=== PATIENT | male | born 1950 | race Two or more races ===

== ENCOUNTER 2022-01-12 21:51 | Inpatient (IN) | payer OTHER ==
[~2022-01-12] VITALS: Ht 175.3 cm; Wt 51.3 kg
[2022-01-12 22:00] VITALS: BP_SYST 164
[2022-01-12] MEDS ORDERED: IPRATROPIUM/ALBUTEROL SULFATE 3 ML AMPUL.NEB (DUONEB) ONE (22:13)
[2022-01-12] MEDS ORDERED: IPRATROPIUM/ALBUTEROL SULFATE 3 ML AMPUL.NEB (DUONEB) INH ONE ×2 (22:15→22:30)
[2022-01-12] MEDS ORDERED: methylPREDNISolone SOD SUCC/PF 62.5 MG/ML VIAL IVP ONE (22:30)
[2022-01-12] MEDS ORDERED: ASPIRIN 81 MG TAB.CHEW PO ONE (22:30)
[2022-01-12] MEDS ORDERED: MAGNESIUM SULFATE 50 ML IV ONE (22:30)
[2022-01-12 22:34] LABS: BASOPHILS % (AUTO) 0.6 % (0.0-2.0); EOSINOPHILS % (AUTO) 0.1 % (0.0-4.0); HEMOGLOBIN 15.2 g/dL (14.0-18.0); LYMPHOCYTES # (AUTO) 0.4 K/uL (1.0-5.5); LYMPHOCYTES % (AUTO) 6.3 % (20.5-51.5); MEAN CORPUSCULAR HEMOGLOBIN 32 pg (27-31); MEAN CORPUSCULAR HGB CONC 34 % (32-36); MEAN CORPUSCULAR VOLUME 94 fL (79.0-98.0); MONOCYTES # (AUTO) 0.8 K/uL (0.0-1.0); MONOCYTES % (AUTO) 13.2 % (1.7-9.3); NEUTROPHILS % (AUTO) 79.8 % (40.0-70.0); PLATELET COUNT (AUTO) 287 K/uL (130-430); RED BLOOD CELL COUNT(AUTO) 4.81 MIL/uL (4.2-6.2); WHITE BLOOD COUNT (AUTO) 6.2 K/uL (4.8-10.8)
[2022-01-12 22:42] LABS: ANION GAP 9 (5-15); CALCIUM 9.8 mg/dL (8.4-11.0); CHLORIDE 105 mmol/L (98-107); GLUCOSE 130 mg/dL (70-99); UREA NITROGEN, BLOOD 25 mg/dL (8-21)
[2022-01-12 22:43] LABS: GFR AFRICAN AMERICAN 52 mL/min (>90)
--- NOTE | 2022-01-12 22:44 | NUR ---
HERE FOR SOB X4 DAYS ACCESSORY MUSCLE USE. HX OF COPD, CHF AND HYPERTENTION. DENIES CHEST PAIN. A/O X4, AMBULATORY
[2022-01-12 22:51] LABS: ALANINE AMINOTRANSFERASE 36 U/L (12-78); ALBUMIN 3.9 g/dL (3.4-4.8); ASPARTATE AMINOTRANSFERASE 25 U/L (10-37); TOTAL BILIRUBIN 0.3 mg/dL (0.0-1.0)
--- NOTE | 2022-01-13 00:15 | NUR ---
Cassy moses in ED - 01/13/22 at 0030 by [email or web address] ULTRASOUND AT BEDSIDE
--- NOTE | 2022-01-13 00:20 | NUR ---
RT AT BEDSIDE
--- NOTE | 2022-01-13 00:43 | NUR ---
Admit bed requested Patient will be admitted to care of . Admitted to TELEMETRY unit. Diagnosis COPD EXACERBATION Inpatient (Yes or No) Y Observation (Yes or N Orientation concerns or request close to nursing station (Yes or No) N Covid Status - On vent or bipap N Isolation requirements N Needs a sitter N From Home (Yes or if No enter name of facility) Y Requires Dialysis (Yes or No) N Med Rec Completed (Yes of No) PENDING
[2022-01-13] MEDS ORDERED: cefTRIAXone 1 GM IVPB PREMIX 50 ML IV ONE (00:45)
[2022-01-13] MEDS ORDERED: AZITHROMYCIN 250 MG TABLET PO ONE (00:45)
[2022-01-13] MEDS ORDERED: IPRATROPIUM/ALBUTEROL SULFATE 3 ML AMPUL.NEB (DUONEB) INH PRN (00:45)
[2022-01-13] MEDS ORDERED: IPRATROPIUM/ALBUTEROL SULFATE 3 ML AMPUL.NEB (DUONEB) ONE (00:50)
--- NOTE | 2022-01-13 01:44 | NUR ---
Transfer to TELE via ACLS protocol. Licensed nurse present. IV present no signs or symptoms of infiltration.
--- NOTE | 2022-01-13 01:45 | NUR ---
Patient will be admitted to care of DR. WILKES. Admitted to TELE unit. Will go to room 107B. Belongings list completed. Complete and up to date summary report printed. SBAR report to be given at bedside with opportunity for questions.
[2022-01-13 02:47] VITALS: BP_SYST 138
[2022-01-13 04:02] VITALS: BP_SYST 138
[2022-01-13] MEDS ORDERED: ROSU10TA29 PO (05:55)
[2022-01-13] MEDS ORDERED: SACU1TAB PO (05:55)
[2022-01-13] MEDS ORDERED: METO50TA7 PO (05:55)
[2022-01-13] MEDS ORDERED: SPIRIVA INH (05:55)
[2022-01-13] MEDS ORDERED: ASPI-1457 PO (05:55)
--- NOTE | 2022-01-13 07:08 | NUR ---
PATIENT NEW ADMIT DURING THIS SHIFT. PATIENT A&OX4, AMB, CONT B&B, ST ON TELEMETRY, NO NOTED WOUNDS, CARDIAC DIET, PIV TO LEFT AC, SL.
--- NOTE | 2022-01-13 07:30 | NUR ---
OPENING NOTE PT IN BED, RESPIRATIONS EVEN AND NON-LABORED 2L O2 VIA NC. DENIES CHEST PAIN, SOB, OR DISCOMFORT. PT IS ABLE TO MAKE HIS NEEDS KNOWN. IV SL REMAIN PATENT AND INTACT. NO S/S OF INFILTRATION OR INFECTION NOTED. BED IS LOCKED AND AT LOW POSITION. ENCOURAGED TO USE CALL LIGHT FOR ASSISTANCE. WILL CONTINUE TO MONITOR.
[2022-01-13] MEDS ORDERED: BUDE6HFA INH (07:33)
[2022-01-13] MEDS ORDERED: ALEN10TA25 PO (07:33)
[2022-01-13] MEDS ORDERED: PRED10TA PO (07:33)
[2022-01-13] MEDS ORDERED: CHOL200019 PO (07:33)
[2022-01-13] MEDS ORDERED: CHLO25TA2 PO (07:33)
[2022-01-13 08:00] VITALS: BP_SYST 156
[2022-01-13] MEDS ORDERED: TIOT4MIS5 IH (08:29)
[2022-01-13] MEDS ORDERED: CETI10CA PO (08:50)
[2022-01-13] MEDS ORDERED: MAGNESIUM SULFATE 50 ML IV PRN (09:45)
[2022-01-13] MEDS ORDERED: NALOXONE HCL 0.4 MG/ML AMP (NARCAN) IVP PRN ×2 (09:45)
[2022-01-13] MEDS ORDERED: DOCUSATE SODIUM 100 MG CAPSULE PO PRN (09:45)
[2022-01-13] MEDS ORDERED: MUPIROCIN 2% TOPICAL OINTMENT 22 GM NS PRN (09:45)
[2022-01-13] MEDS ORDERED: POTASSIUM CHLORIDE 20 MEQ TAB.PRT.SR PO PRN (09:45)
[2022-01-13] MEDS ORDERED: ONDANSETRON HCL 4 MG/2 ML VIAL IVP PRN (09:45)
[2022-01-13] MEDS ORDERED: ACETAMINOPHEN 325 MG TABLET PO PRN ×2 (09:45→10:00)
[2022-01-13] MEDS ORDERED: LORazepam 2 MG/ML VIAL IVP PRN (09:45)
[2022-01-13] MEDS ORDERED: MORPHINE 2 MG/ML INJ. SYRINGE IVP PRN ×2 (09:45)
[2022-01-13] MEDS ORDERED: METOPROLOL SUCCINATE 50 MG TAB.SR.24H (TOPROL XL) PO ONE (10:00)
[2022-01-13] MEDS ORDERED: SACUBITRIL/VALSARTAN 24 MG-26 MG 1 TABLET PO ONE (10:00)
[2022-01-13] MEDS: CHLORTHALIDONE 25 MG TABLET (HYGROTON) PO ONE ×2 (10:57→11:10)
--- NOTE | 2022-01-13 11:30 | NUR ---
NOTES PT REQUESTS TO INCREASE O2 FROM 2L TO 3L VIA NC. PT TOLERATED WELL WITH SPO2:96%.
[2022-01-13 12:00] VITALS: BP_SYST 134
[2022-01-13] MEDS: ALBUTEROL SULFATE 0.083% 2.5 MG/3 ML VIAL.NEB INH SCH ×2 (12:59→19:00)
[2022-01-13] MEDS: methylPREDNISolone SOD SUCC/PF 62.5 MG/ML VIAL IVP SCH ×2 (14:47→21:28)
--- NOTE | 2022-01-13 15:00 | NUR ---
NOTES PT DENIES ANY PAIN OR DISCOMFORT. DENIES ANY PAIN, DISCOMFORT, SOB NOTED. SAFETY PRECAUTION IN PLACED. WILL CONTINUE TO MONITOR
[2022-01-13 16:00] VITALS: BP_SYST 134
[2022-01-13] MEDS: BUDESONIDE 0.5 MG/2 ML AMPUL.NEB INH SCH (19:00)
--- NOTE | 2022-01-13 19:00 | NUR ---
CLOSING NOTE PT IN BED, RESPIRATIONS EVEN AND NON-LABORED 3L O2 VIA NC. DENIES CHEST PAIN, SOB, OR DISCOMFORT. IV SL REMAIN PATENT AND INTACT. NO S/S OF INFILTRATION OR INFECTION NOTED. BED IS LOCKED AND AT LOW POSITION. ENCOURAGED TO USE CALL LIGHT FOR ASSISTANCE. ENDORSED CARE TO CHUCKING MACHINE SET UP OPERATOR TOOL NURSE.
[2022-01-13 20:00] VITALS: BP_SYST 148
[2022-01-13] MEDS ORDERED: BUDESONIDE/FORMOTEROL 160-4.5 mCg, 6 GM INHALER INH SCH (21:00)
[2022-01-13] MEDS: SACUBITRIL/VALSARTAN 24 MG-26 MG 1 TABLET PO SCH (21:20)
[2022-01-14] VITALS: BP_SYST 138
[2022-01-14] MEDS: ALBUTEROL SULFATE 0.083% 2.5 MG/3 ML VIAL.NEB INH SCH ×4 (01:00→19:38)
[2022-01-14] MEDS: methylPREDNISolone SOD SUCC/PF 62.5 MG/ML VIAL IVP SCH ×3 (06:35→21:01)
[2022-01-14 06:47] LABS: BASOPHILS # (AUTO) 0.1 K/uL (0.0-0.2); BASOPHILS % (AUTO) 0.8 % (0.0-2.0); HEMATOCRIT 46.1 % (36-54); HEMOGLOBIN 15.4 g/dL (14.0-18.0); LYMPHOCYTES # (AUTO) 0.3 K/uL (1.0-5.5); LYMPHOCYTES % (AUTO) 4.4 % (20.5-51.5); MEAN CORPUSCULAR HEMOGLOBIN 31 pg (27-31); MEAN CORPUSCULAR HGB CONC 33 % (32-36); MEAN CORPUSCULAR VOLUME 94 fL (79.0-98.0); MONOCYTES # (AUTO) 0.3 K/uL (0.0-1.0); MONOCYTES % (AUTO) 5.1 % (1.7-9.3); NEUTROPHILS % (AUTO) 89.7 % (40.0-70.0); PLATELET COUNT (AUTO) 274 K/uL (130-430); RED BLOOD CELL COUNT(AUTO) 4.92 MIL/uL (4.2-6.2); RED CELL DISTRIBUTION WIDTH 14.9 % (9.0-15.0); WHITE BLOOD COUNT (AUTO) 6.7 K/uL (4.8-10.8)
[2022-01-14] MEDS: BUDESONIDE 0.5 MG/2 ML AMPUL.NEB INH SCH ×2 (07:12→19:37)
[2022-01-14 07:36] LABS: CALCIUM 8.7 mg/dL (8.4-11.0); CREATININE 1.43 mg/dL (0.55-1.30)
[2022-01-14 08:08] VITALS: BP_SYST 137
--- NOTE | 2022-01-14 08:11 | NUR ---
Initial notes Received patient awake and oriented x 4, speech clear. Comfortable sitting at edge of bed tripod position for lung expansion. Respiration even and unlabored oxygen saturation at 98% on 4L NC. Non signs of distress or SOB. Abdomen nondistended, skin warm to touch. IV saline lock intact no sings of redness or infiltration. Continue to monitor, all safety measures secured, bed in low position and call light w/in reached
[2022-01-14] MEDS: METOPROLOL SUCCINATE 50 MG TAB.SR.24H (TOPROL XL) PO SCH (08:54)
[2022-01-14] MEDS: CHLORTHALIDONE 25 MG TABLET (HYGROTON) PO SCH ×2 (08:56→09:00)
[2022-01-14] MEDS: SACUBITRIL/VALSARTAN 24 MG-26 MG 1 TABLET PO SCH ×2 (08:57→21:01)
[2022-01-14 11:31] VITALS: BP_SYST 124
--- NOTE | 2022-01-14 12:00 | NUR ---
Rounding Patient stable ,sitting at edge of bed, no signs of distress,answer to questions and concerns.
--- NOTE | 2022-01-14 14:20 | NUR ---
Rounding Patient sitting in chair, no signs of distress, family at bedside
[2022-01-14 15:31] VITALS: BP_SYST 130
[2022-01-14] MEDS ORDERED: AZITHROMYCIN 250 MG TABLET PO ONE (16:30)
[2022-01-14] MEDS ORDERED: FUROSEMIDE 20 MG/2 ML VIAL IVP ONE (16:30)
[2022-01-14] MEDS: MONTELUKAST 10 MG TABLET PO SCH (17:10)
--- NOTE | 2022-01-14 18:06 | NUR ---
Closing notes Patient sitting (tripod position) at edge of bed, uses accessory muscle, respiration even and unlabored, oxygen saturation at 98% on 4L nasal canula. No signs of respiratory distress or no c/o chest discomfort. Vital signs w/in normal limits, IV saline lock to left AC patent. All safety measures are secure, bed in low position, call light w/in reached, will endorse to oncoming nurse for continuation of care.
[2022-01-14 20:30] VITALS: BP_SYST 137
[2022-01-14] MEDS ORDERED: SALMETEROL XINAFOATE 50 MCG 1 EA DISK.W.DEV INH SCH (21:00)
[2022-01-14] MEDS: LORATADINE 10 MG TABLET PO SCH (21:01)
--- NOTE | 2022-01-14 22:00 | NUR ---
New IV start 22 Gauge left FA tolerated .
--- NOTE | 2022-01-14 23:28 | NUR ---
patient sitting up in bed Tripod position COPD , on 02 NC 2 LPM Respirations Regular also unlabored call mejía given to patient .
[2022-01-15 00:07] VITALS: BP_SYST 144
[2022-01-15] MEDS: ALBUTEROL SULFATE 0.083% 2.5 MG/3 ML VIAL.NEB INH SCH ×4 (01:00→19:00)
--- NOTE | 2022-01-15 01:12 | NUR ---
HOURLY Rounding patient Resting is verbally Responsive FALL RISK measures implemented chest movement symmetrical unlabored / .
--- NOTE | 2022-01-15 04:42 | NUR ---
Hourly Rounding patient Resting Tripod position on 02 NC 2 LPM Respirations Regular also unlabored is verbally Responsive call mejía with patient / .
[2022-01-15] MEDS: methylPREDNISolone SOD SUCC/PF 62.5 MG/ML VIAL IVP SCH ×3 (05:55→22:01)
--- NOTE | 2022-01-15 06:00 | NUR ---
New IV start 22 Gauge Right FA d/t previous IV got pulled out .
[2022-01-15] MEDS: BUDESONIDE 0.5 MG/2 ML AMPUL.NEB INH SCH (07:31)
[2022-01-15 07:44] LABS: CALCIUM 8.8 mg/dL (8.4-11.0); CREATININE 1.49 mg/dL (0.55-1.30)
[2022-01-15 07:58] LABS: BASOPHILS % (AUTO) 0.1 % (0.0-2.0); HEMATOCRIT 48.3 % (36-54); HEMOGLOBIN 16.2 g/dL (14.0-18.0); LYMPHOCYTES # (AUTO) 0.3 K/uL (1.0-5.5); LYMPHOCYTES % (AUTO) 4.3 % (20.5-51.5); MEAN CORPUSCULAR HEMOGLOBIN 31 pg (27-31); MEAN CORPUSCULAR HGB CONC 34 % (32-36); MEAN CORPUSCULAR VOLUME 94 fL (79.0-98.0); MONOCYTES # (AUTO) 0.4 K/uL (0.0-1.0); MONOCYTES % (AUTO) 5.6 % (1.7-9.3); NEUTROPHILS # (AUTO) 6.9 K/uL (1.8-7.7); PLATELET COUNT (AUTO) 278 K/uL (130-430); RED BLOOD CELL COUNT(AUTO) 5.16 MIL/uL (4.2-6.2); RED CELL DISTRIBUTION WIDTH 14.8 % (9.0-15.0); WHITE BLOOD COUNT (AUTO) 7.7 K/uL (4.8-10.8)
[2022-01-15 08:00] VITALS: BP_SYST 150
--- NOTE | 2022-01-15 08:00 | NUR ---
Initial notes Received patient awake and oriented x 4, comfortable sitting up at edge of bed in tripod position for lung expansion. Respiration even and unlabored oxygen saturation at 98% on 4L nasal canula, vital signs w/in normal limits. No signs of distress or SOB. Abdomen soft, skin warm to touch. IV saline lock intact no signs of redness or infiltration. Continue to monitor, all safety measures secured, bed in low position and call light w/in reached
[2022-01-15] MEDS: METOPROLOL SUCCINATE 50 MG TAB.SR.24H (TOPROL XL) PO SCH (08:18)
[2022-01-15] MEDS: AZITHROMYCIN 250 MG TABLET PO SCH (08:19)
[2022-01-15] MEDS: CHLORTHALIDONE 25 MG TABLET (HYGROTON) PO SCH (08:20)
--- NOTE | 2022-01-15 09:58 | NUR ---
CONSULTATION PAGED/CALLED Reason for Consultation: [facility] Person Who was Notified: Dr Allen Consulting Physician: Pallavi Allen Ordering Physician: Kavin Mcghee
[2022-01-15] MEDS: SACUBITRIL/VALSARTAN 24 MG-26 MG 1 TABLET PO SCH ×2 (11:20→22:02)
[2022-01-15 11:28] VITALS: BP_SYST 139
--- NOTE | 2022-01-15 12:09 | NUR ---
CONSULTATION PAGED/CALLED Reason for Consultation: copd/hx of chf Person Who was Notified: evangelina Consulting Physician: kayli contreras Ordering Physician: crista edmond
[2022-01-15 15:36] VITALS: BP_SYST 132
--- NOTE | 2022-01-15 16:18 | NUR ---
Rounding Patient awake sitting up in bed, no c/o distress or chest pain.
[2022-01-15] MEDS: MONTELUKAST 10 MG TABLET PO SCH (18:20)
--- NOTE | 2022-01-15 18:44 | NUR ---
Closing note Patient awake sitting at edge of bed, respiration even and unlabored, oxygen saturation at 98% on 4L nasal canula. No signs of respiratory distress or no c/o pain. IV saline lock to left AC patent. All safety measures are secure, bed in low position, call light w/in reached, will endorse to oncoming nurse for continuation of care.
[2022-01-15 21:00] VITALS: BP_SYST 135
[2022-01-15] MEDS: LORATADINE 10 MG TABLET PO SCH (22:02)
--- NOTE | 2022-01-15 22:15 | NUR ---
Tripod position dangling feet BED ALARM is on patient alert , on 02 NC @ 2 LPM 02 SAT 93 % skin dry warm chest movement symmetrical unlabored .
[2022-01-16 01:00] VITALS: BP_SYST 144
[2022-01-16] MEDS: ALBUTEROL SULFATE 0.083% 2.5 MG/3 ML VIAL.NEB INH SCH ×2 (01:00→07:00)
--- NOTE | 2022-01-16 03:43 | NUR ---
Hourly Rounding patient Resting is verbally Responsive skin dry warm call mejía given to patient bed alarm is ON / .
[2022-01-16] MEDS: methylPREDNISolone SOD SUCC/PF 62.5 MG/ML VIAL IVP SCH ×2 (05:57→12:20)
[2022-01-16 07:08] LABS: BASOPHILS % (AUTO) 0.1 % (0.0-2.0); HEMATOCRIT 49.6 % (36-54); HEMOGLOBIN 16.7 g/dL (14.0-18.0); LYMPHOCYTES # (AUTO) 0.3 K/uL (1.0-5.5); MEAN CORPUSCULAR HEMOGLOBIN 31 pg (27-31); MEAN CORPUSCULAR HGB CONC 34 % (32-36); MEAN CORPUSCULAR VOLUME 93 fL (79.0-98.0); MONOCYTES # (AUTO) 0.4 K/uL (0.0-1.0); MONOCYTES % (AUTO) 4.5 % (1.7-9.3); NEUTROPHILS # (AUTO) 7.6 K/uL (1.8-7.7); NEUTROPHILS % (AUTO) 91.4 % (40.0-70.0); PLATELET COUNT (AUTO) 273 K/uL (130-430); RED BLOOD CELL COUNT(AUTO) 5.32 MIL/uL (4.2-6.2); RED CELL DISTRIBUTION WIDTH 14.8 % (9.0-15.0); WHITE BLOOD COUNT (AUTO) 8.4 K/uL (4.8-10.8)
[2022-01-16 07:29] LABS: CALCIUM 8.6 mg/dL (8.4-11.0); CREATININE 1.59 mg/dL (0.55-1.30)
[2022-01-16 08:00] VITALS: BP_SYST 134
--- NOTE | 2022-01-16 08:00 | NUR ---
Initial Notes Patient is AOx4. No s.s of distress noted. Breathing is even and nonlabored, on room air. Spo2 is at 92-93%. Patient has nasal cannula at 3 L O2 if needed. Patient states does not need it at this time. Uses it when ambulating. Patient denies pain and SOB. Vital signs obtained, as documented. Patient sitting on chair by bedside. Gait steady. Breakfast on bedside table. Bed locked and at lowest position. Educated patient on safety and fall precautions, patient verbalized understanding. Call light within reach.
[2022-01-16] MEDS ORDERED: PRED10TA PO (08:54)
[2022-01-16] MEDS ORDERED: AZIT-93 PO (08:54)
[2022-01-16] MEDS ORDERED: ASPIRIN 81 MG TABLET(ECOTRIN) PO SCH (09:00)
[2022-01-16] MEDS ORDERED: ATORVASTATIN 20 MG TABLET PO SCH (09:00)
[2022-01-16] MEDS ORDERED: ROSUVASTATIN CALCIUM 5 MG PO SCH (09:00)
[2022-01-16] MEDS: SACUBITRIL/VALSARTAN 24 MG-26 MG 1 TABLET PO SCH (09:51)
[2022-01-16] MEDS: AZITHROMYCIN 250 MG TABLET PO SCH (09:52)
[2022-01-16] MEDS: METOPROLOL SUCCINATE 50 MG TAB.SR.24H (TOPROL XL) PO SCH (09:52)
[2022-01-16] MEDS: CHLORTHALIDONE 25 MG TABLET (HYGROTON) PO SCH (09:53)
[2022-01-16 10:06] VITALS: BP_SYST 134
[2022-01-16 10:56] VITALS: BP_SYST 127; BP_SYST 134
[2022-01-16 12:00] VITALS: BP_SYST 127
--- NOTE | 2022-01-16 12:45 | NUR ---
discharge Patient is sitting in chair. No s.s of distress noted. breathing is even and nonlabored, on 3 L O2 via NC. Patient ambulated with PT earlier. Gait steady. Patient denies SOB. Denies pain. patient waiting for his ride. Safety precautions in place and call light within reach. Addendum: 01/16/22 at 1247 by Sasha Omalley LVN Notes
--- NOTE | 2022-01-16 13:30 | NUR ---
D/C Patient Patient given medication reconciliation form and D/C instructions. Exit Care provided. Patient verbalized understanding. MD discussed with patient the results and treatment provided. Ambulatory with steady gait for discharge to home. Patient in stable condition, ID band removed. IV catheter removed, intact and dressing applied, no active bleeding. Rx of given. Patient educated on pain management. All belongings sent with patient.
== END 2022-01-16 13:05 | disposition home or self-care (01) | DRG 291 ==
LOC: SED 21:51 → STU 01-13 00:38
PROVIDERS: ADMIT Family Medicine; ATTEND Family Medicine
DX: I13.0 Hypertensive heart and chronic kidney disease with heart failure and stage 1 through stage 4 chronic kidney disease, or unspecified chronic kidney disease (principal); I50.23 Acute on chronic systolic (congestive) heart failure; J96.21 Acute and chronic respiratory failure with hypoxia; N17.0 Acute kidney failure with tubular necrosis; J44.1 Chronic obstructive pulmonary disease with (acute) exacerbation; R64 Cachexia; Z68.1 Body mass index [BMI] 19.9 or less, adult; I42.9 Cardiomyopathy, unspecified; E78.5 Hyperlipidemia, unspecified; N18.9 Chronic kidney disease, unspecified; Z20.822 Contact with and (suspected) exposure to COVID-19; Z87.891 Personal history of nicotine dependence; Z86.718 Personal history of other venous thrombosis and embolism; Z79.01 Long term (current) use of anticoagulants; Z86.711 Personal history of pulmonary embolism
CPT/HCPCS: 36415; 71045; 71250-TC; 76376; 80048; 80053; 83735; 83880; 84484; 85025; 85379; 93005; 93306; 94640; 94760; 96365; 96375; 99285; G0378; J0696; J1940; J2930; J3475; J7613; J7626; Q0144

== ENCOUNTER 2022-04-22 08:03 | Emergency (ER) | payer OTHER ==
[~2022-04-22] VITALS: Ht 177.8 cm; Wt 49.9 kg
[~2022-04-22 08:03] MED LIST: ALEN10TA25 PO; ASPI-1457 PO; AZIT-93 PO; BUDE6HFA INH; CETI10CA PO; CHLO25TA2 PO; CHOL200019 PO; METO50TA7 PO; PRED10TA PO; ROSU10TA29 PO; SACU1TAB PO; TIOT4MIS5 IH
[2022-04-22 08:05] VITALS: BP_SYST 168
--- NOTE | 2022-04-22 08:10 | NUR ---
BROUGHT BACK TO BED #7 AND TRIAGED. REPORT GIVEN TO EUGENIO
--- NOTE | 2022-04-22 08:30 | NUR ---
Pt brought in by self from home. Chief Complaint left nostril nose bleed. No discharge at this time. Pt states this morning was awoken with the left nares bleeding. Pt states was able to control bleed and presents to the hospital with out signs of distress. Oxygen in home use 2 liters via nasal canula; pt with personal oxygen tank. Denies nausea. Pt states history of COPD, HTN and cardiac history related to alcohol consumption.
--- NOTE | 2022-04-22 08:32 | NUR ---
ER at bedside examining patient.
[2022-04-22] MEDS ORDERED: SODI126M NS (08:43)
[2022-04-22 09:15] VITALS: BP_SYST 168
--- NOTE | 2022-04-22 09:20 | NUR ---
Patient given written and verbal discharge instructions and verbalizes understanding. ER MD discussed with patient the results and treatment provided. Patient in stable condition. ID arm band removed. Rx of Normal saline mist given. Patient educated on pain management and to follow up with PMD. Opportunity for questions provided and answered. Medication side effect fact sheet provided.
== END 2022-04-22 09:20 | disposition home or self-care (01) ==
LOC: SED 08:03
DX: R04.0 Epistaxis (principal); J44.9 Chronic obstructive pulmonary disease, unspecified; I10 Essential (primary) hypertension; Z79.899 Other long term (current) drug therapy
CPT/HCPCS: 99281

== ENCOUNTER 2022-04-27 02:53 | Emergency (ER) | payer OTHER ==
[~2022-04-27] VITALS: Ht 170.2 cm; Wt 49.9 kg
[2022-04-27 02:53] VITALS: BP_SYST 142
[~2022-04-27 02:53] MED LIST changes: +SODI126M NS
--- NOTE | 2022-04-27 02:53 | NUR ---
Pt BIB BLS, placed to ER bed 05, to gown, to laboratory monitor. Pt c/o nose bleed since last night and was seen here in ER 5 days ago for same issue. Arrives with nose clamp in place, but bright red blood noted to be dripping from right nare. Pt states that he last took his daily baby aspirin 5 days ago when the bleeding started. No other anticoagulants reported.
[2022-04-27] MEDS ORDERED: OXYMETAZOLINE HCL 0.05% NASAL SPRAY NS ONE (03:00)
[2022-04-27] MEDS ORDERED: TRANEXAMIC ACID 1,000 MG/10 ML VIAL TP ONE (03:00)
--- NOTE | 2022-04-27 03:05 | NUR ---
Dr. Sosa at bedside to assess pt.
[2022-04-27] MEDS ORDERED: NACL 0.9% 1,000 ML IV ONE (03:15)
--- NOTE | 2022-04-27 03:15 | NUR ---
# 18 gauge angiocath placed to RAC. Use of asceptic technique. Opsite placed over site. Blood return noted. Blood for lab drawn from site. Flushed with 10 cc of normal saline. No evidence of infiltration noted. Patient tolerated well.
--- NOTE | 2022-04-27 03:40 | NUR ---
7.5 cm Rhino Rocket soaked in TXA and Afrin placed to right nare per Dr. Sosa. Bleeding controlled.
[2022-04-27 03:47] LABS: BASOPHILS # (AUTO) 0.1 K/uL (0.0-0.2); BASOPHILS % (AUTO) 1.4 % (0.0-2.0); EOSINOPHILS # (AUTO) 0.3 K/uL (0.0-0.4); EOSINOPHILS % (AUTO) 6.2 % (0.0-4.0); HEMATOCRIT 47.1 % (36-54); HEMOGLOBIN 15.5 g/dL (14.0-18.0); LYMPHOCYTES # (AUTO) 1.3 K/uL (1.0-5.5); LYMPHOCYTES % (AUTO) 24.4 % (20.5-51.5); MEAN CORPUSCULAR HEMOGLOBIN 31 pg (27-31); MEAN CORPUSCULAR HGB CONC 33 % (32-36); MEAN CORPUSCULAR VOLUME 95 fL (79.0-98.0); MONOCYTES # (AUTO) 0.7 K/uL (0.0-1.0); NEUTROPHILS # (AUTO) 2.8 K/uL (1.8-7.7); PLATELET COUNT (AUTO) 239 K/uL (130-430); RED BLOOD CELL COUNT(AUTO) 4.97 MIL/uL (4.2-6.2); RED CELL DISTRIBUTION WIDTH 14.7 % (9.0-15.0); WHITE BLOOD COUNT (AUTO) 5.2 K/uL (4.8-10.8)
[2022-04-27 04:08] LABS: ANION GAP 9 (5-15); CALCIUM 9.7 mg/dL (8.4-11.0); CHLORIDE 103 mmol/L (98-107); CREATININE 1.14 mg/dL (0.55-1.30); GLUCOSE 118 mg/dL (70-99); UREA NITROGEN, BLOOD 14 mg/dL (8-21)
[2022-04-27 04:12] LABS: ALANINE AMINOTRANSFERASE 37 U/L (12-78); ALBUMIN 4.3 g/dL (3.4-4.8); ASPARTATE AMINOTRANSFERASE 26 U/L (10-37); TOTAL BILIRUBIN 0.8 mg/dL (0.0-1.0)
[2022-04-27 04:17] LABS: PROTHROMBIN TIME 10.9 SECS (9.5-12.5)
--- NOTE | 2022-04-27 04:30 | NUR ---
Pt states that he feels blood to back of throat. Bright red drops of blood noted dripping from left nare. Dr. Sosa at bedside to reposition rhino rocket and bleeding subsides.
--- NOTE | 2022-04-27 05:00 | NUR ---
No further epistaxis noted. HR 98, B/P 158/96. Pt denies c/o C/P or SOB. Dr. Sosa updated on pt status and no new orders received. Daughter at bedside.
--- NOTE | 2022-04-27 06:00 | NUR ---
B/P 143/95, asymptomatic. Dr. Pack made aware.
--- NOTE | 2022-04-27 06:10 | NUR ---
No further epistaxis noted. Denies c/o pain or discomfort. Warm blankets provided.
--- NOTE | 2022-04-27 06:19 | NUR ---
Medication reconciliation completed with information provided by patient. Any prior medication reconciliation on file was reviewed and corrected.
[2022-04-27] MEDS ORDERED: SACUBITRIL/VALSARTAN 24 MG-26 MG 1 TABLET PO ONE (06:30)
[2022-04-27] MEDS ORDERED: METOPROLOL SUCCINATE 50 MG TAB.SR.24H (TOPROL XL) PO ONE (06:30)
--- NOTE | 2022-04-27 06:39 | NUR ---
Pt declined by [facility] doctor as per Anali.Dr Pack notified.
--- NOTE | 2022-04-27 06:50 | NUR ---
Pt c/o pain to Right nare. Dr. Pack notified and pt to be medicated prior to discharge.
[2022-04-27] MEDS ORDERED: traMADol HCL HCL 50 MG TABLET (ULTRAM) PO ONE (07:00)
[2022-04-27 07:10] VITALS: BP_SYST 143
--- NOTE | 2022-04-27 07:10 | NUR ---
Patient given written and verbal discharge instructions and verbalizes understanding. ER MD discussed with patient the results and treatment provided. Patient in stable condition. ID arm band removed. IV catheter removed intact and dressing applied, no active bleeding. No Rx given given. Patient educated on pain management and to follow up with PMD. Pain Scale 5/10, medicated prior to discharge. Opportunity for questions provided and answered. Medication side effect fact sheet provided.
== END 2022-04-27 07:10 | disposition home or self-care (01) ==
LOC: SED 02:53
DX: R04.0 Epistaxis (principal); J44.9 Chronic obstructive pulmonary disease, unspecified; I10 Essential (primary) hypertension; Z79.899 Other long term (current) drug therapy
CPT/HCPCS: 99291; 30905; 80053; 85025; 85610; 85730; 86886; 86900; 86901; 36415; J3490

== ENCOUNTER 2022-08-27 14:45 | Inpatient (IN) | payer OTHER ==
[~2022-08-27] VITALS: Ht 175.3 cm; Wt 49.9 kg
[~2022-08-27 14:45] MED LIST changes: -ALEN10TA25 PO; -AZIT-93 PO; -PRED10TA PO
[2022-08-27 14:50] VITALS: BP_SYST 114
--- NOTE | 2022-08-27 15:00 | NUR ---
Placed in room 04 . Placed on residential monitor, blood pressure machine and pulse oximeter. To gown for exam. Side rails up. Report given to TRANG STARKEY.
[2022-08-27] MEDS ORDERED: IPRATROPIUM/ALBUTEROL SULFATE 3 ML AMPUL.NEB (DUONEB) INH ONE (15:15)
[2022-08-27] MEDS ORDERED: MAGNESIUM SULFATE 50 ML IV ONE (15:15)
[2022-08-27] MEDS ORDERED: methylPREDNISolone SOD SUCC/PF 62.5 MG/ML VIAL IVP ONE (15:15)
--- NOTE | 2022-08-27 15:15 | NUR ---
Radiology at bedside now
[2022-08-27 15:30] LABS: BASOPHILS % (AUTO) 0.2 % (0.0-2.0); HEMOGLOBIN 14.3 g/dL (14.0-18.0); LYMPHOCYTES # (AUTO) 0.1 K/uL (1.0-5.5); LYMPHOCYTES % (AUTO) 0.8 % (20.5-51.5); MEAN CORPUSCULAR HEMOGLOBIN 31 pg (27-31); MEAN CORPUSCULAR HGB CONC 33 % (32-36); MEAN CORPUSCULAR VOLUME 97 fL (79.0-98.0); MONOCYTES # (AUTO) 1.1 K/uL (0.0-1.0); MONOCYTES % (AUTO) 8.3 % (1.7-9.3); NEUTROPHILS # (AUTO) 12.5 K/uL (1.8-7.7); NEUTROPHILS % (AUTO) 90.7 % (40.0-70.0); PLATELET COUNT (AUTO) 251 K/uL (130-430); RED BLOOD CELL COUNT(AUTO) 4.56 MIL/uL (4.2-6.2); WHITE BLOOD COUNT (AUTO) 13.8 K/uL (4.8-10.8)
--- NOTE | 2022-08-27 15:30 | NUR ---
Respiratory at bedside now.
--- NOTE | 2022-08-27 15:39 | NUR ---
Patient given ECG and is resting on gurney.
[2022-08-27 15:55] LABS: ANION GAP 7 (5-15); CALCIUM 9.1 mg/dL (8.4-11.0); CHLORIDE 97 mmol/L (98-107); GLUCOSE 198 mg/dL (70-99); UREA NITROGEN, BLOOD 20 mg/dL (8-21)
[2022-08-27 16:00] LABS: ALANINE AMINOTRANSFERASE 21 U/L (12-78); ALBUMIN 2.6 g/dL (3.4-4.8); ASPARTATE AMINOTRANSFERASE 16 U/L (10-37); TOTAL BILIRUBIN 0.6 mg/dL (0.0-1.0)
[2022-08-27] MEDS ORDERED: cefTRIAXone 1 GM IVPB PREMIX 50 ML IV ONE (16:30)
[2022-08-27] MEDS ORDERED: AZITHROMYCIN 500 MG in NS 250 ML IV ONE (16:30)
[2022-08-27] MEDS ORDERED: NACL 0.9% 1,500 ML IV ONE (16:30)
--- NOTE | 2022-08-27 16:57 | NUR ---
Patient has spoken to MD and has been advised that he will stay in the hospital. Patient indicates he understands and family was present and able to ask questions to the Doctor.
--- NOTE | 2022-08-27 18:14 | NUR ---
Note [email or web address] in ED - 08/27/22 at 1818 by [email or web address] Admit bed requested Patient will be admitted to care of [Michel]. Admitted to [Medsurg] unit. Diagnosis [COPD, PNEUMONIA] Inpatient (Yes or No) [YES] Observation (Yes or No) [N/A] Orientation concerns or request close to nursing station (Yes or No) [N/A] Covid Status [PENDING] On vent or bipap [] Isolation requirements [] Needs a sitter [N/A] From Home (Yes or if No enter name of facility) [YES] Requires Dialysis (Yes or No) [N/A] Med Rec Completed (Yes of No) []
--- NOTE | 2022-08-27 18:14 | NUR ---
Admit bed requested Patient will be admitted to care of [Michel]. Admitted to [Tele ] unit. Diagnosis [COPD, PNEUMONIA] Inpatient (Yes or No) [YES] Observation (Yes or No) [N/A] Orientation concerns or request close to nursing station (Yes or No) [N/A] Covid Status [PENDING] On vent or bipap [n/a] Isolation requirements [n/a] Needs a sitter [N/A] From Home (Yes or if No enter name of facility) [YES] Requires Dialysis (Yes or No) [N/A] Med Rec Completed (Yes of No) []
[2022-08-27] MEDS ORDERED: methylPREDNISolone SOD SUCC/PF 62.5 MG/ML VIAL IVP SCH (18:15)
--- NOTE | 2022-08-27 19:43 | NUR ---
Made sure that patient"s fluids were going at this time. Patient is with daughter and states that he feels much better. Heart rate down from 135 at arrival to 116 at this time.
--- NOTE | 2022-08-27 19:45 | NUR ---
FIRST CONTACT WITH PT. ASSESSMENT COMPLRTED. AWAITING ADMISSION TO TELE.
[2022-08-27] MEDS ORDERED: SACU1TAB PO (20:39)
[2022-08-27] MEDS ORDERED: TAMS0.4C96 PO (20:39)
[2022-08-27] MEDS ORDERED: FLUT1BLS5 IH (20:39)
[2022-08-27] MEDS ORDERED: PRED20TA PO (20:39)
[2022-08-27] MEDS ORDERED: VITD2000 PO (20:39)
--- NOTE | 2022-08-27 20:54 | NUR ---
ADMISSION NOTE Received patient from ER via octavia, received report from TRANG Carrasquillo. Patient admitted with diagnosis of COPD/PNA. Patient oriented to hospital routine, call light, toileting and safety-patient verbalized understanding.
[2022-08-27 21:15] VITALS: BP_SYST 144
--- NOTE | 2022-08-27 21:24 | NUR ---
Patient will be admitted to care of [facility]. Admitted to TELE unit. Will go to room 123A. Belongings list completed. Complete and up to date summary report printed. SBAR report to be given at bedside with opportunity for questions.
[2022-08-27 21:34] VITALS: BP_SYST 123
--- NOTE | 2022-08-27 21:50 | NUR ---
Initial RN notes Pt AAOx4, VSS, O2 sat 95% on 3L NC. No s/s distress. IV saline lock L. FA 22G clear and patent. and daughter at bedside. Oriented pt with call light use and educated on plan of care. Call light within reach. Bed low, locked, siderails up x2, alarm on. Pt's daughter took home pt's O2 tank.
--- NOTE | 2022-08-27 23:13 | NUR ---
Clarification of order Called and spoke with Dr. Pearson to clarify Solumedrol is scheduled med not PRN. Also to change pt diet from Regular to 2 gram Sodium.
[2022-08-28 00:11] VITALS: BP_SYST 117
--- NOTE | 2022-08-28 02:39 | NUR ---
CONSULTATION PAGED REASON FOR CONSULTATION: COPD, PNEUMONIA WAS CONSULT CALLED? Y PERSON WHO WAS NOTIFIED: BLAS CONSULTING PHYSICIAN: Adry HOLT SPECIAL NEEDS TEACHER SPECIALTY: ID SPECIAL NEEDS TEACHER PHONE NUMBER: [phone] REQUESTING PHYSICIAN: SHAHIDA BARNHART FAXED
[2022-08-28] MEDS: 0.45% NACL 1,000 ML IV SCH ×4 (04:15→21:38)
[2022-08-28 05:46] LABS: BASOPHILS % (AUTO) 0.3 % (0.0-2.0); HEMATOCRIT 37.3 % (36-54); HEMOGLOBIN 12.3 g/dL (14.0-18.0); LYMPHOCYTES # (AUTO) 0.2 K/uL (1.0-5.5); LYMPHOCYTES % (AUTO) 1.7 % (20.5-51.5); MEAN CORPUSCULAR HEMOGLOBIN 32 pg (27-31); MEAN CORPUSCULAR HGB CONC 33 % (32-36); MEAN CORPUSCULAR VOLUME 96 fL (79.0-98.0); MONOCYTES # (AUTO) 0.6 K/uL (0.0-1.0); MONOCYTES % (AUTO) 6.4 % (1.7-9.3); NEUTROPHILS # (AUTO) 8.5 K/uL (1.8-7.7); NEUTROPHILS % (AUTO) 91.6 % (40.0-70.0); PLATELET COUNT (AUTO) 211 K/uL (130-430); WHITE BLOOD COUNT (AUTO) 9.3 K/uL (4.8-10.8)
[2022-08-28] MEDS: methylPREDNISolone SOD SUCC/PF 62.5 MG/ML VIAL IVP SCH ×3 (06:00→21:29)
--- NOTE | 2022-08-28 06:00 | NUR ---
Closing notes Pt alert, awake, watching TV. Pt denies SOB. Pt states he slept well. Pt O2 lowered to 2L via NC satting at 95%. Pt states he uses O2 at home 2L-3L. Call light within reach. at bedside. To endorse to AM nurse.
[2022-08-28 06:33] LABS: ALANINE AMINOTRANSFERASE 16 U/L (12-78); ALBUMIN 1.9 g/dL (3.4-4.8); ANION GAP 1 (5-15); ASPARTATE AMINOTRANSFERASE 6 U/L (10-37); CHLORIDE 102 mmol/L (98-107); CHOLESTEROL 122 mg/dL (<200); CREATININE 1.09 mg/dL (0.55-1.30); GLUCOSE 145 mg/dL (70-99); HDL CHOLESTEROL 76 mg/dL (>45); THYROID STIMULATING HORMONE 0.16 uIu/mL (0.34-4.82); TOTAL BILIRUBIN 0.4 mg/dL (0.0-1.0); TRIGLYCERIDES 32 mg/dL (30-150); UREA NITROGEN, BLOOD 15 mg/dL (8-21)
--- NOTE | 2022-08-28 07:30 | NUR ---
MORNING ROUNDS: PATIENT AWAKE DURING ROUNDS. O2 3L/NC,GOOD SATURATION. IV FLUIDS RUNNING AT LEFT AC INTACT. CALL LIGHT WITH IN REACH. SAFETY MEASURES RENDERED.
[2022-08-28] MEDS ORDERED: AZITHROMYCIN 250 MG in NS 250 ML IV SCH (09:00)
[2022-08-28] MEDS ORDERED: cefTRIAXone 1 GM IVPB PREMIX 50 ML IV SCH ×2 (09:00→10:25)
[2022-08-28 10:14] VITALS: BP_SYST 137
[2022-08-28 11:37] VITALS: BP_SYST 124
[2022-08-28] MEDS: AZITHROMYCIN 250 MG in NS 250 ML IV SCH (11:44)
--- NOTE | 2022-08-28 12:09 | NUR ---
CONSULTATION PAGED REASON FOR CONSULTATION: WAS CONSULT CALLED? Y PERSON WHO WAS NOTIFIED: HELDER CONSULTING PHYSICIAN: OCTAVIANO PEPPER SOFTWARE APPLICATIONS DESIGNER SPECIALTY: PULMONARY SOFTWARE APPLICATIONS DESIGNER PHONE NUMBER: [phone] REQUESTING PHYSICIAN: IBLL ZAVALA
--- NOTE | 2022-08-28 12:30 | NUR ---
PER PULMO: CHANGED PULMO CONSULTATION TO DR RODGERS PER PATIENT'S REQUEST AND ORDERED BY DR ISAAC.
--- NOTE | 2022-08-28 13:23 | NUR ---
CONSULTATION PAGED REASON FOR CONSULTATION: SOB WAS CONSULT CALLED? Y PERSON WHO WAS NOTIFIED: DANIEL CONSULTING PHYSICIAN: YODIT MILLS ( CUSTOM DECORATING CONSULTANT) VIDEO PRESENTATION OPERATOR SPECIALTY: PULMONARY VIDEO PRESENTATION OPERATOR PHONE NUMBER: [phone] REQUESTING PHYSICIAN: FRANCIS OLVERA
--- NOTE | 2022-08-28 16:48 | NUR ---
PAGED: SPOKE WITH DR PINEDO TO RECONCILE PATIENTS HOME MEDICATION,PATIENT MY=[id number]/89.
[2022-08-28] MEDS: IPRATROPIUM/ALBUTEROL SULFATE 3 ML AMPUL.NEB (DUONEB) INH SCH ×2 (18:00→22:57)
[2022-08-28 18:35] VITALS: BP_SYST 143
--- NOTE | 2022-08-28 19:25 | NUR ---
END OF HSIFT: ENDORSED TO NIGHT NURSE ANGIE,PATIENT IN STABLE CONDITION. ON O2 3L/NC,GOOD SATURATION. SAFETY MEASURES RENDERED.NO SOB. CONTINUE TO MONITOR.
[2022-08-28] MEDS ORDERED: MAGNESIUM SULFATE 50 ML IV ONE (19:45)
[2022-08-28 20:00] VITALS: BP_SYST 150
[2022-08-28] MEDS: METOPROLOL TARTRATE 25 MG TABLET PO SCH (20:52)
[2022-08-28] MEDS: SACUBITRIL/VALSARTAN 24 MG-26 MG 1 TABLET PO SCH (20:52)
[2022-08-28] MEDS: CEFEPIME 1 GM in D5W 50 ML IV SCH (20:53)
[2022-08-28] MEDS ORDERED: SACUBITRIL/VALSARTAN 24 MG-26 MG 1 TABLET PO SCH (21:00)
[2022-08-29] MEDS ORDERED: guaiFENesin/DEXTROMETHORPHAN 1 EACH TAB.ER.12H PO PRN (00:15)
[2022-08-29 00:56] VITALS: BP_SYST 128
--- NOTE | 2022-08-29 03:06 | NUR ---
OPENING NOTES: 2000: Patient was received during change of shift. Patient AA&Ox4 able to make needs known, with family at bedside and call light within reach. Chest rise even and unlabored on 3L via NC and noted to be ST on tele monitoring. Patient denied any pain or distress at the time no noted s/s of distress. Safety measures in place per protocol and care was resumed. 22:00 Patient has been assessed as indicated and has received scheduled medications as indicated. Patient reports a non productive cough so MD was called. Dr. Pearson placed an order for PRN mucinex. Patient has been noted to be ST with HR noted to be as his as 130bpm Dr. Pearson requested to consult with Dr. Alexander for Cardio consult. Patient care provided will continue to monitor. 0000: Patient was reassessed and BP and HR is noted to have decreased patient is now noted with SR with some ST in the <110bpm. no s/s of distress noted. Will continue to monitor.
--- NOTE | 2022-08-29 03:24 | NUR ---
Dr. Roman at bedside. Dr. Roman at bedside patient reports chest discomfort from the non productive cough received order for X1 order of acetaminophen. Orders noted and carried out.
[2022-08-29] MEDS ORDERED: ACETAMINOPHEN 325 MG TABLET PO ONE (03:30)
[2022-08-29] MEDS: IPRATROPIUM/ALBUTEROL SULFATE 3 ML AMPUL.NEB (DUONEB) INH PRN (03:31)
--- NOTE | 2022-08-29 05:08 | NUR ---
CONSULTATION PAGED REASON FOR CONSULTATION: ELEVATED HR WAS CONSULT CALLED? Y PERSON WHO WAS NOTIFIED: Nimco CONSULTING PHYSICIAN: Dr. Alexander REQUESTING PHYSICIAN: Dr. Pearosn
[2022-08-29] MEDS: methylPREDNISolone SOD SUCC/PF 62.5 MG/ML VIAL IVP SCH ×3 (05:26→22:13)
[2022-08-29] MEDS: IPRATROPIUM/ALBUTEROL SULFATE 3 ML AMPUL.NEB (DUONEB) INH SCH ×6 (06:00→22:00)
--- NOTE | 2022-08-29 06:57 | NUR ---
CLOSING NOTES: Patient is in bed resting no s/s of distress is noted at this time. Chest rise is even and unlabored on 3L via NC and remains on tele monitoring with NSR to ST with bpm <110bpm. Patient is able to make needs known, has call light within reach and is at bedside. Patient denies pain at this time, all current shift needs have been met at this time, patient is stable, will differ care to AM shift nurse for continuity of care.
--- NOTE | 2022-08-29 07:35 | NUR ---
Morning Rounds: Patient awake during rounds. at the bedside. O2 3l/nc, o2 saturation=98%.Iv fluids running at left forearm intact. Call light with in reach. Bed locked at lowest position. Safety measures rendered. Continue to monitor.
[2022-08-29 08:00] VITALS: BP_SYST 139
[2022-08-29] MEDS: FUROSEMIDE 20 MG TABLET PO SCH (08:37)
[2022-08-29] MEDS: FAMOTIDINE 20 MG TABLET PO SCH (08:37)
[2022-08-29] MEDS: CHOLECALCIFEROL (VITAMIN D3) 2,000 UNIT TABLET PO SCH (08:37)
[2022-08-29] MEDS: METOPROLOL TARTRATE 25 MG TABLET PO SCH ×2 (08:38→18:45)
[2022-08-29] MEDS: ENOXAPARIN SODIUM 30 MG/0.3 ML SYRINGE SUBCUT SCH (08:39)
[2022-08-29] MEDS: SACUBITRIL/VALSARTAN 24 MG-26 MG 1 TABLET PO SCH ×2 (08:40→20:27)
[2022-08-29] MEDS: AZITHROMYCIN 250 MG in NS 250 ML IV SCH (08:41)
[2022-08-29] MEDS ORDERED: predniSONE 20 MG TABLET PO SCH (09:00)
[2022-08-29] MEDS ORDERED: CHLORTHALIDONE 25 MG TABLET (HYGROTON) PO SCH (09:00)
[2022-08-29] MEDS ORDERED: METOPROLOL SUCCINATE 50 MG TAB.SR.24H (TOPROL XL) PO SCH (09:00)
--- NOTE | 2022-08-29 09:03 | NUR ---
COLOR WEIGHER rounds: Yvette at the bedside spoke to the patient , and daughter.Discussed plan of care and updates were given.
--- NOTE | 2022-08-29 10:20 | NUR ---
In to speak with the patient and family at the request of the CM to offer resources related to IHSS and mental health services. I met with patient a the bedside. I introduced myself to him and asked if it was ok to speak with him in the presence of his family. The patient was in agreement to speaking with me. Per patient, he lives in a a 4-step entry RV [place] in [place]. The patient is using home O2 set to 2-3L. He does not have a Power of Inseminator. He has support from his and children. his PCP is Dr. valdez in [place]. The discharge plan is to go to a daughter's home in [place] and resume home health services. Per daughter, the patient has had home health services previously and the family would like to resume again. The daughter was unaware as to who was providing the home health, but indicated she would have her sister call back in with the name of the agency. According to the daughter, the patient was previously at [facility] where he was released to his daughter's home in [place]. The patient stayed there for approximately two weeks, then chose to return home shortly after. The discharge plan to the daughter's home now is meant to be temporary according to the patient, however the daughter has indicated she would like to see the patient not ye the time at the daughter's home. I provided the patient and family information on IHSS services. I explained how hours are rendered and what is expected on how hours are distributed. The daughter states that the family will be applying for IHSS. As to mental health, the patient states he has been more anxious then usual. He is taking an antianxiety medication, however it is not being monitored by a mental health professional. I offered the patient information on effective coping skills and outpatient mental health services within [facility]. The patient and family were receptive of the information provided.
[2022-08-29 12:00] VITALS: BP_SYST 132
[2022-08-29] MEDS: ACETAMINOPHEN 325 MG TABLET PO PRN (13:20)
--- NOTE | 2022-08-29 15:33 | NUR ---
FAXED [employer] FOR [employer] FOR A WHEELCHAIR.
[2022-08-29 16:00] VITALS: BP_SYST 135
[2022-08-29] MEDS: 0.45% NACL 1,000 ML IV SCH ×2 (17:23→22:13)
[2022-08-29] MEDS ORDERED: COMMUNICATION ORDER XX ONE ×2 (17:30→17:45)
--- NOTE | 2022-08-29 18:45 | NUR ---
CARDIO PAGED: SPOKE WITH DR ANDRADE REGARDING ELEVATED HEART 140'S -151 ,WITH ORDERS GIVE NIGHT DOSE OF METOPROLOL NOW.DUE METOPROLOL 25MG PO GIVEN ORDERED.
--- NOTE | 2022-08-29 19:06 | NUR ---
EVENING ROUNDS: FAMILY AT BEDSIDE. MAINTAINED O2 @ 3L/NC,O2 SATURATION=96-97%.CALL LIGHT WITH IN REACH. BED LOCKED AT LOWEST POSITION.SAFETY MEASURES RENDERED. CONTINUE TO MONITOR.
--- NOTE | 2022-08-29 20:00 | NUR ---
Patient is tachycardic , mild SOB on exertion oxygen saturation 92 % with 3 l/nc plan of care discussed with patient verbalized understanding.
[2022-08-29 20:10] VITALS: BP_SYST 129
[2022-08-29] MEDS ORDERED: guaiFENesin/DEXTROMETHORPHAN 118 ML PO PRN (20:15)
[2022-08-29] MEDS: CEFEPIME 1 GM in D5W 50 ML IV SCH (20:27)
[2022-08-29] MEDS ORDERED: guaiFENesin/DEXTROMETHORPHAN 10 ML UDC PO PRN (20:30)
--- NOTE | 2022-08-29 23:25 | NUR ---
PATIENT RESTING: Patient resting quietly. No acute distress noted. Vital signs within normal range.
[2022-08-30] VITALS (22 sets, daily range): BP systolic 66–138
[2022-08-30] MEDS: IPRATROPIUM/ALBUTEROL SULFATE 3 ML AMPUL.NEB (DUONEB) INH PRN (01:14)
--- NOTE | 2022-08-30 01:22 | NUR ---
IV RE-INSERTION: IV site mildly swollen Restarted on right forearm. Successful after 1 attempts. Resumed current IVF Will observe for any signs of infiltration.
[2022-08-30 05:28] LABS: BASOPHILS % (AUTO) 0.2 % (0.0-2.0); EOSINOPHILS % (AUTO) 0.1 % (0.0-4.0); HEMATOCRIT 43.2 % (36-54); LYMPHOCYTES # (AUTO) 0.2 K/uL (1.0-5.5); LYMPHOCYTES % (AUTO) 0.8 % (20.5-51.5); MEAN CORPUSCULAR HEMOGLOBIN 32 pg (27-31); MEAN CORPUSCULAR HGB CONC 32 % (32-36); MEAN CORPUSCULAR VOLUME 97 fL (79.0-98.0); MONOCYTES # (AUTO) 0.7 K/uL (0.0-1.0); MONOCYTES % (AUTO) 3.6 % (1.7-9.3); NEUTROPHILS # (AUTO) 18.8 K/uL (1.8-7.7); NEUTROPHILS % (AUTO) 95.3 % (40.0-70.0); PLATELET COUNT (AUTO) 272 K/uL (130-430); RED BLOOD CELL COUNT(AUTO) 4.45 MIL/uL (4.2-6.2); RED CELL DISTRIBUTION WIDTH 14.9 % (9.0-15.0); WHITE BLOOD COUNT (AUTO) 19.7 K/uL (4.8-10.8)
[2022-08-30 05:49] LABS: ANION GAP 7 (5-15); CALCIUM 8.9 mg/dL (8.4-11.0); CHLORIDE 100 mmol/L (98-107); GLUCOSE 183 mg/dL (70-99); UREA NITROGEN, BLOOD 35 mg/dL (8-21)
[2022-08-30] MEDS: IPRATROPIUM/ALBUTEROL SULFATE 3 ML AMPUL.NEB (DUONEB) INH SCH ×2 (06:00→07:58)
[2022-08-30] MEDS: methylPREDNISolone SOD SUCC/PF 62.5 MG/ML VIAL IVP SCH ×3 (06:17→21:23)
--- NOTE | 2022-08-30 06:31 | NUR ---
Patient oxygen saturation maintaining 91 to 92% , with crackling sound bilateral chest , heart rate sustaining to 120 /min . patient sleeping , Dr Alexander informed IV fluid discontinued.
--- NOTE | 2022-08-30 08:35 | NUR ---
Transfer to ICU Received report on pt. Pt on BiPAP 15/, FiO2 30%. Pt attempting to get out of bed and remove mask, uncooperative with care. Pt transfer post rapid response in telemetry unit being unarousable to noxious stimuli. Afebrile. IV SL 22g on right hand intact, patent. Pt's daughters at bedside and aware of situation.
--- NOTE | 2022-08-30 08:46 | NUR ---
0735- after report was given, patient called and stated that patient is not responsive. Vital sign 98.2, BP 108/67, 120, 96% 2 L. Patient is not responsive. Rapid respond called. ABG, chest X, EKG, Stat done. here making round and aware. 0750- called and informed Dr. Pearson, and ordered to transfer patient to ICU. 0815- RT called pulmonology to report about the ABG result 0830-Transfer to ICU, at bedside. Took all the belonging.
[2022-08-30] MEDS ORDERED: ROCURONIUM BROMIDE 10 MG/ML (ZEMURON) ONE (09:00)
[2022-08-30] MEDS: ENOXAPARIN SODIUM 30 MG/0.3 ML SYRINGE SUBCUT SCH (09:00)
[2022-08-30] MEDS: CHOLECALCIFEROL (VITAMIN D3) 2,000 UNIT TABLET PO SCH (09:00)
[2022-08-30] MEDS ORDERED: TRELEGY INH SCH (09:00)
[2022-08-30] MEDS: SACUBITRIL/VALSARTAN 24 MG-26 MG 1 TABLET PO SCH ×2 (09:00→21:24)
[2022-08-30] MEDS: ASPIRIN 81 MG TABLET(ECOTRIN) PO SCH (09:00)
[2022-08-30] MEDS ORDERED: PROPOFOL DRIP 100 ML IV ONE (09:05)
--- NOTE | 2022-08-30 09:20 | NUR ---
Dr. Allen at bedside with pt and pt's daughters discussing plan of care. Dr. Allen states pt will be intubated.
--- NOTE | 2022-08-30 09:35 | NUR ---
Dr. Allen performed intubation, bronchoscopy, and central line placement. Addendum: 08/30/22 at 1213 by Buddy Hawthorne RN RN Propofol IV push done by Dr. Allen for intubation.
[2022-08-30] MEDS ORDERED: NOREPINEPHRINE 4 MG/4 ML VIAL IV ONE ×2 (09:45→09:48)
[2022-08-30] MEDS: NOREPINEPHRINE BITARTRATE 16 MG in NS 234 ML IV PRN (09:50)
--- NOTE | 2022-08-30 10:10 | NUR ---
0735 RAPID RESPOND CALLED. SPO2 97%, HR 68 ON NC 3LPM. CALLED MD ALMANZA FOR ABG CRITICAL RESULTS, PH 7.078, PCO2 95.8mmHg. 0809 PLACED ON BIPAP SETTINGS WITH 15/5 BUR 16, FIO2 30%. 0830 TRANSFERRED PATIENT TO ICU 5 VIA BIPAP. SPO2 94%, HR 115.
[2022-08-30] MEDS: MIDAZOLAM IN NACL,ISO-OSMOT/PF 100 ML IV PRN (10:19)
--- NOTE | 2022-08-30 10:35 | NUR ---
SBAR REPORT RECEIVED FROM SULAIMAN COSTELLO, ALL CARES ASSUMED. PT INTUBATED AND SEDATED. ETT TO VENT AC 18, 350, 100%, 5. NG TUBE R NARE, CLAMPED. LEVOPHED 0.06 MCG/KG/MIN, VERSED 1MG/HR AND SECOND NS BOLUS INFUSING TO R IJ CENTRAL LINE. MARQUEZ CATHETER DRAINING TO GRAVITY, NO URINE VISUALIZED. BED IN LOW AND LOCKED POSITION.
--- NOTE | 2022-08-30 10:44 | NUR ---
0935 ASSISTED INTUBATION BY MD ALMANZA. ETT 7.5 AT LIPLINE. CO2 DETECTOR CHANGED COLOR YELLOW BILATERAL BREATH SOUNDS NOTICED. 0945 PATIENT ON VENT SETTINGS WITH AC18, VT 350, PEEP +5, FIO2 100%. BRONCHOSCOPY DONE POST INTUBATION. PUSHED ETT 3 cm per MD ALMANZA. 27 AT LIP LINE. ETT SECURED WITH ANCHOR FAST. VENT TO RED OUTLET AND ALARMS ARE AUDIBLE. ABG FOLLOW 1 HOUR.
--- NOTE | 2022-08-30 10:50 | NUR ---
Met family in [facility] as they were leaving the ICU area. Daughter Alea requested a pastoral visit for prayer. The daughter states the family is Rastafarian and they prefer a Rastafarian jukebox coin collector. I reached out to two local churches requesting a pastoral visit for prayer. 1. [facility]: [phone] - [employer] Jasmin Marmolejo will give me a call this afternoon. 2. [facility]: [phone] - Flora took a message and advised a message would be sent to the jukebox coin collector's board and she will have someone contact me.
[2022-08-30] MEDS ORDERED: NACL 0.9% 1,000 ML IV ONE ×2 (11:00)
--- NOTE | 2022-08-30 11:20 | NUR ---
CHANGED VENT SETTINGS TO AC20, VT 375ML, FIO2 50% PER MD ALMANZA. PUSHED ETT 1CM DOWN PER MD ALMANZA. ETT 28 AT LIPLINE. SECURED WITH ANCHOR FAST.
[2022-08-30] MEDS ORDERED: PROPOFOL 200MG/ 20ML VIAL (DIPRIVAN) IV ONE (11:30)
[2022-08-30] MEDS ORDERED: ROCURONIUM BROMIDE 10 MG/ML (ZEMURON) IV ONE (11:30)
[2022-08-30] MEDS: FAMOTIDINE 20 MG TABLET PO SCH (13:08)
[2022-08-30] MEDS: METOPROLOL TARTRATE 25 MG TABLET PO SCH ×2 (13:08→21:00)
[2022-08-30] MEDS: FUROSEMIDE 20 MG TABLET PO SCH (13:08)
[2022-08-30] MEDS: AZITHROMYCIN 250 MG in NS 250 ML IV SCH (13:09)
[2022-08-30] MEDS: NACL 0.9% 1,000 ML IV SCH ×2 (13:10→21:23)
[2022-08-30] MEDS: levalbuterol HCL 0.63 MG/3 ML VIAL.NEB INH SCH ×2 (13:34→19:45)
[2022-08-30] MEDS: IPRATROPIUM BROM 0.5 MG/2.5 ML VIAL.NEB (ATROVENT) INH SCH ×2 (13:35→19:45)
--- NOTE | 2022-08-30 14:00 | NUR ---
Received call from chaplain Sheree, from [facility] who advised that she received the message requesting for a pastoral prayer. Sheree advised that she was in the area and will come by to see the patient and family within 20 - 30 minutes. Sheree made aware that the patient is in the ICU and her family was at bedside. TRANG Puga advised that the interior design director has indicated she will be by in 20 - 30 minutes to pray with the patient and family.
--- NOTE | 2022-08-30 15:23 | NUR ---
Sheree Pettit, from [facility] in to pray with patient and family. I brought the child care sitter to the family at the ICU waiting room. I advised RN Edd that the child care sitter was present and speaking with the family.
[2022-08-30] MEDS ORDERED: VANCOMYCIN HCL 1,000 MG in NS 250 ML IV SCH (19:00)
--- NOTE | 2022-08-30 19:15 | NUR ---
Opening notes Received report from endorsing morning RN for continuity of care. Patient is lying in bed intubated with IVF NS @ 100 mL/hr, versed @ 2 mg/hr, fentanyl @ 25 mcg/hr, and levophed @ 0.18 mcg/kg/min. Patient's vital signs blood pressure 82/55, heart rate 107, respirations 20, and SPO2 94% on mechanical ventilator. Ventilator settings AC 20, tidal volume 375, FIO2 50%, and peep of 5. Rt. NG tube is in placed, will start tube feeding tonight. Fulton catheter is in place draining to gravity. Bed is locked and in lowest position, fall and safety precautions is in place.
[2022-08-30] MEDS: CEFEPIME 1 GM in D5W 50 ML IV SCH (21:23)
[2022-08-31] VITALS (36 sets, daily range): BP systolic 74–137
[2022-08-31] MEDS: levalbuterol HCL 0.63 MG/3 ML VIAL.NEB INH SCH ×4 (01:12→19:25)
[2022-08-31] MEDS: IPRATROPIUM BROM 0.5 MG/2.5 ML VIAL.NEB (ATROVENT) INH SCH ×4 (01:13→19:27)
[2022-08-31] MEDS: NOREPINEPHRINE BITARTRATE 16 MG in NS 234 ML IV PRN (03:38)
[2022-08-31] MEDS: methylPREDNISolone SOD SUCC/PF 62.5 MG/ML VIAL IVP SCH (05:55)
[2022-08-31] MEDS: NACL 0.9% 1,000 ML IV SCH ×2 (06:11→18:06)
[2022-08-31 06:12] LABS: BASOPHILS % (AUTO) 0.2 % (0.0-2.0); EOSINOPHILS % (AUTO) 0.1 % (0.0-4.0); HEMATOCRIT 42.5 % (36-54); HEMOGLOBIN 13.5 g/dL (14.0-18.0); LYMPHOCYTES # (AUTO) 0.1 K/uL (1.0-5.5); LYMPHOCYTES % (AUTO) 0.7 % (20.5-51.5); MEAN CORPUSCULAR HEMOGLOBIN 31 pg (27-31); MEAN CORPUSCULAR HGB CONC 32 % (32-36); MEAN CORPUSCULAR VOLUME 98 fL (79.0-98.0); MONOCYTES # (AUTO) 0.8 K/uL (0.0-1.0); MONOCYTES % (AUTO) 4.6 % (1.7-9.3); NEUTROPHILS # (AUTO) 17.2 K/uL (1.8-7.7); NEUTROPHILS % (AUTO) 94.4 % (40.0-70.0); PLATELET COUNT (AUTO) 234 K/uL (130-430); RED BLOOD CELL COUNT(AUTO) 4.32 MIL/uL (4.2-6.2); RED CELL DISTRIBUTION WIDTH 15.7 % (9.0-15.0); WHITE BLOOD COUNT (AUTO) 18.2 K/uL (4.8-10.8)
[2022-08-31 06:20] LABS: ALANINE AMINOTRANSFERASE 33 U/L (12-78); ALBUMIN 1.7 g/dL (3.4-4.8); ANION GAP 12 (5-15); ASPARTATE AMINOTRANSFERASE 13 U/L (10-37); CALCIUM 8.5 mg/dL (8.4-11.0); CHLORIDE 101 mmol/L (98-107); CREATININE 1.93 mg/dL (0.55-1.30); GLUCOSE 195 mg/dL (70-99); TOTAL BILIRUBIN 0.3 mg/dL (0.0-1.0); UREA NITROGEN, BLOOD 47 mg/dL (8-21)
--- NOTE | 2022-08-31 08:18 | NUR ---
0818 CHANGED VENT SETTINGS TO AC22, VT 400ml per MD ALMANZA.
[2022-08-31] MEDS: FAMOTIDINE 20 MG TABLET PO SCH (08:51)
[2022-08-31] MEDS: CHOLECALCIFEROL (VITAMIN D3) 2,000 UNIT TABLET PO SCH (08:51)
[2022-08-31] MEDS: METOPROLOL TARTRATE 25 MG TABLET PO SCH ×2 (08:51→20:50)
[2022-08-31] MEDS: FUROSEMIDE 20 MG TABLET PO SCH (08:52)
[2022-08-31] MEDS: ENOXAPARIN SODIUM 30 MG/0.3 ML SYRINGE SUBCUT SCH (08:52)
[2022-08-31] MEDS: SACUBITRIL/VALSARTAN 24 MG-26 MG 1 TABLET PO SCH (08:53)
[2022-08-31] MEDS: AZITHROMYCIN 250 MG in NS 250 ML IV SCH (08:54)
[2022-08-31] MEDS ORDERED: SODIUM BICARBONATE 8.4% JECT 50 MEQ/50 ML SYRINGE IVP ONE (10:45)
[2022-08-31] MEDS ORDERED: NOREPINEPHRINE BITARTRATE 32 MG in NS 234 ML IV PRN (11:15)
[2022-08-31] MEDS ORDERED: SODIUM POLYSTYRENE SULFONATE 15 GM/60 ML UDBTL PO ONE (11:45)
[2022-08-31] MEDS ORDERED: BUMEX 1 MG/4 ML VIAL IVP ONE (12:00)
[2022-08-31] MEDS: NOREPINEPHRINE BITARTRATE 32 MG in NS 218 ML IV PRN (12:11)
[2022-08-31] MEDS: VASOPRESSIN 20 UNITS in NS 99 ML IV PRN (12:12)
[2022-08-31] MEDS: ALBUMIN HUMAN 25% 100 ML IV SCH ×3 (12:51→23:39)
--- NOTE | 2022-08-31 13:00 | NUR ---
Wound Evaluation: Wound Consult ordered for Low Bassam Score. Patient evaluated for a low Bassam score of 13. Patient was awake, obtunded, sedated, intubated, and received in a [facility] bed with an Isoflex MANDI mattress. Patient needs to be turned in bed. Skin assessment: 1. Left Heel: Blanchable redness. 2. Right Heel: Blanchable redness. 3. Right Lateral Ankle: Blanchable redness. Recommend: Cover sites with foam dressings for protection. Elevate, offload and float bilateral heels with 1 pillow lengthwise under each extremity at all times. Assess sites every shift with peel and peak technique. Change dressings every 24 hours and as needed for dressing soiling or dislodgment. Recommend: Reposition patient every 2 hours with pillow support. Elevate, off-load and float bilateral heels with 1 pillow lengthwise each extremity at all times. Offload pressure areas with pillows for pressure re-distribution. Placed towel roll folded in thirds underneath head to elevate ears off of pillow at all times. Perform skin care and monitor skin integrity Q shift. Use moisture barrier cream on moisture susceptible areas QID and PRN for soiling. Place sacral foam dressing on to sacral area for pressure injury prophylaxis. Place patient on a P500 low air-loss mattress.
[2022-08-31] MEDS ORDERED: METHYLPREDNISOLONE SOD SUCC 40 MG/ML VIAL IVP SCH (14:00)
[2022-08-31] MEDS: FENTANYL CITRATE-0.9 % NACL/PF 100 ML IV PRN (15:03)
[2022-08-31] MEDS: LINEZOLID 300 ML IV SCH (15:14)
[2022-08-31] MEDS: MIDAZOLAM IN NACL,ISO-OSMOT/PF 100 ML IV PRN (17:35)
--- NOTE | 2022-08-31 18:44 | NUR ---
Dietitian Recommendations * Pivot 1.5 at 55 ml/hr (goal rate), Free Water Flush: 200 ml Q4h via NGT Provides: 1980 kcal/day, 124 gm protein/day, and 1790 ml free water/day Meets: 90% of lower end of estimated caloric needs, 85% of upper end of estimated protein needs, and 81% of lower end of estimated fluid needs LP, MS, RD Please refer to Nutrition Assessment for details. Addendum: 08/31/22 at [address] Amended: Links added.
--- NOTE | 2022-08-31 19:20 | NUR ---
Opening notes Received report from endorsing morning RN for continuity of care. Patient is lying in bed intubated with IVF NS @ 100 mL/hr, versed @3 mg/hr, fentanyl @ 25 mcg/hr, vasopressin @ 0.02 units/min, and levophed @ 0.1 mcg/kg/min. Patient's vital signs blood pressure 131/73, heart rate 105, respirations 22, and SPO2 93% on mechanical ventilator. Ventilator settings AC 22, tidal volume 400, FIO2 30%, and peep of 5. Rt. NG tube is in placed, vital AF 1.2 @ 20 mL/hr, will change tube feeding to Pivot 1.5 tonight per MD order. Fulton catheter is in place draining to gravity. Bed is locked and in lowest position, fall and safety precautions is in place.
[2022-08-31] MEDS ORDERED: IPRATROPIUM BROM 0.5 MG/2.5 ML VIAL.NEB (ATROVENT) INH ONE (19:28)
[2022-08-31] MEDS: CEFEPIME 1 GM in D5W 50 ML IV SCH (20:51)
[2022-08-31] MEDS: METHYLPREDNISOLONE SOD SUCC 40 MG/ML VIAL IVP SCH (21:15)
[2022-08-31 23:03] LABS: BILIRUBIN,URINE NEGATIVE (NEGATIVE); BLOOD, URINE 1+ (NEGATIVE); COLOR,URINE YELLOW (YELLOW); GLUCOSE,URINE TRACE (NEGATIVE); KETONES,URINE TRACE (NEGATIVE); LEUKOCYTE ESTERASE ,URINE NEGATIVE (NEGATIVE); NITRITE, URINE NEGATIVE (NEGATIVE); PH,URINE 5.5 (5.0-8.0); PROTEIN URINE NEGATIVE (NEGATIVE); UROBILINOGEN,URINE 0.2 (0.2-1.0)
[2022-08-31 23:18] LABS: CLARITY/URINE HAZY (CLEAR)
[2022-08-31 23:39] LABS: BACTERIA,URINE None Seen /HPF (None Seen); RBC,URINE 0-3 /HPF (0-3); WBC,URINE 0-3 /HPF (0-3)
[2022-09-01] VITALS (36 sets, daily range): BP systolic 88–135
[2022-09-01] MEDS: VASOPRESSIN 20 UNITS in NS 99 ML IV PRN (00:44)
[2022-09-01] MEDS: LINEZOLID 300 ML IV SCH ×2 (00:44→13:15)
[2022-09-01] MEDS: levalbuterol HCL 0.63 MG/3 ML VIAL.NEB INH SCH ×4 (01:00→19:46)
[2022-09-01] MEDS: IPRATROPIUM BROM 0.5 MG/2.5 ML VIAL.NEB (ATROVENT) INH SCH ×4 (01:00→19:46)
[2022-09-01] MEDS: NACL 0.9% 1,000 ML IV SCH ×3 (03:04→23:34)
[2022-09-01] MEDS: METHYLPREDNISOLONE SOD SUCC 40 MG/ML VIAL IVP SCH ×2 (05:35→20:39)
[2022-09-01 06:27] LABS: ANION GAP 8 (5-15); CALCIUM 7.4 mg/dL (8.4-11.0); CHLORIDE 105 mmol/L (98-107); CREATININE 2.04 mg/dL (0.55-1.30); GLUCOSE 375 mg/dL (70-99); UREA NITROGEN, BLOOD 67 mg/dL (8-21)
--- NOTE | 2022-09-01 08:00 | NUR ---
RECEIVED PATIENT IN BED INTUBATED, ETT TO VENT WITH SETTING OF : AC/22 TV 400 FIO2 30% PEEP 5, ON RIGHT NG TUBE FEEDING WITH PIVOT 1.5 AT 30 ML/HR, HOB ELEVATED >30 DEGREE, SEDATED WITH FENTANYL 25 MCG/HR, VERSED 2 MG/HR, VASOPRESS 0.02 U/MIN, ALL IV INFUSING AT NMJ CENTRAL LINE, SITE INTACT. MARQUEZ IN PLACE DRAINING TO GRAVITY, BOTH LOWER LEG EDEMA. AT BEDSIDE.
[2022-09-01] MEDS: ENOXAPARIN SODIUM 30 MG/0.3 ML SYRINGE SUBCUT SCH (08:13)
[2022-09-01] MEDS: AZITHROMYCIN 250 MG in NS 250 ML IV SCH (08:13)
[2022-09-01] MEDS: CHOLECALCIFEROL (VITAMIN D3) 2,000 UNIT TABLET PO SCH (08:14)
[2022-09-01] MEDS: ASPIRIN 81 MG TABLET(ECOTRIN) PO SCH (08:14)
[2022-09-01] MEDS: FAMOTIDINE 20 MG TABLET PO SCH (08:15)
[2022-09-01] MEDS: FUROSEMIDE 20 MG TABLET PO SCH (08:16)
[2022-09-01] MEDS: METOPROLOL TARTRATE 25 MG TABLET PO SCH ×2 (08:18→20:39)
--- NOTE | 2022-09-01 10:15 | NUR ---
RT NOTES 1015 MD Allen did bedside CPAP trial (cpap 5, ps12) pt went apneic immediately. Per MD Titrate sedations and daily cpap trial. will cont to monitor pt. Will try CPAP again later the day, will coordinate with the RN.
--- NOTE | 2022-09-01 10:33 | NUR ---
SEEN BY DR ALMANZA, AWARE THE ABG RESULT, FENTANYL OFF , VERSED TO 1 MG/HR AND DECREASED VASOPRESS TO 0.01 UNIT/MIN , RT WILL DO CPAP TRIAL PER DR ALMANZA.
[2022-09-01] MEDS ORDERED: KCL 40 mEq in 100 mL (PREMIX) 100 ML IV ONE (11:00)
--- NOTE | 2022-09-01 11:55 | NUR ---
rt notes [id number] - Pt lasted 5 Minutes in CPAP, pt BP not stable enough. Pt RR on CPAP 8-10, pt did try spontaneous breaths better with coaching, after 5 minutes saturation from 98 dropped to 91-92%. will try CPAP again later on. at bedside. will cont to monitor pt.
--- NOTE | 2022-09-01 12:55 | NUR ---
Signed MD order for wheelchair sent to [facility]
--- NOTE | 2022-09-01 13:50 | NUR ---
rt notes 1350 Placed pt again on CPAP 5, PS12 - Pt went apneic despite coaching, will try CPAP again in 1-2 hours. family at bedside.
--- NOTE | 2022-09-01 14:30 | NUR ---
Transferred pt to new bed with a SU in place.
--- NOTE | 2022-09-01 15:58 | NUR ---
Received a call from [facility]-they will call family and deliver W/C to the patient's home
[2022-09-01] MEDS: ACETAMINOPHEN 325 MG TABLET PO PRN (16:16)
[2022-09-01] MEDS ORDERED: CEFEPIME 1 GM/VIAL (MAXIPIME) ONE (21:32)
[2022-09-01] MEDS: CEFEPIME 1 GM in D5W 50 ML IV SCH (21:33)
[2022-09-01] MEDS: MIDAZOLAM IN NACL,ISO-OSMOT/PF 100 ML IV PRN (23:35)
[2022-09-02] VITALS (36 sets, daily range): BP systolic 101–184
[2022-09-02] MEDS: LINEZOLID 300 ML IV SCH ×2 (00:01→13:12)
[2022-09-02] MEDS: IPRATROPIUM BROM 0.5 MG/2.5 ML VIAL.NEB (ATROVENT) INH SCH ×4 (00:43→20:15)
[2022-09-02] MEDS: levalbuterol HCL 0.63 MG/3 ML VIAL.NEB INH SCH ×4 (00:45→20:16)
[2022-09-02 05:26] LABS: BASOPHILS % (AUTO) 0.2 % (0.0-2.0); HEMATOCRIT 33.9 % (36-54); LYMPHOCYTES # (AUTO) 0.1 K/uL (1.0-5.5); LYMPHOCYTES % (AUTO) 0.7 % (20.5-51.5); MEAN CORPUSCULAR HEMOGLOBIN 31 pg (27-31); MEAN CORPUSCULAR HGB CONC 32 % (32-36); MEAN CORPUSCULAR VOLUME 96 fL (79.0-98.0); MONOCYTES # (AUTO) 0.4 K/uL (0.0-1.0); MONOCYTES % (AUTO) 2.9 % (1.7-9.3); NEUTROPHILS # (AUTO) 12.3 K/uL (1.8-7.7); NEUTROPHILS % (AUTO) 96.2 % (40.0-70.0); PLATELET COUNT (AUTO) 115 K/uL (130-430); RED BLOOD CELL COUNT(AUTO) 3.53 MIL/uL (4.2-6.2); RED CELL DISTRIBUTION WIDTH 15.6 % (9.0-15.0); WHITE BLOOD COUNT (AUTO) 12.8 K/uL (4.8-10.8)
[2022-09-02 05:50] LABS: ALANINE AMINOTRANSFERASE 30 U/L (12-78); ALBUMIN 2.2 g/dL (3.4-4.8); ANION GAP 9 (5-15); ASPARTATE AMINOTRANSFERASE 19 U/L (10-37); CALCIUM 7.6 mg/dL (8.4-11.0); CHLORIDE 105 mmol/L (98-107); CREATININE 2.04 mg/dL (0.55-1.30); GLUCOSE 322 mg/dL (70-99); TOTAL BILIRUBIN 0.3 mg/dL (0.0-1.0); UREA NITROGEN, BLOOD 70 mg/dL (8-21)
[2022-09-02] MEDS: ENOXAPARIN SODIUM 30 MG/0.3 ML SYRINGE SUBCUT SCH (08:14)
[2022-09-02] MEDS: CHOLECALCIFEROL (VITAMIN D3) 2,000 UNIT TABLET PO SCH (08:15)
[2022-09-02] MEDS: FUROSEMIDE 20 MG TABLET PO SCH (08:15)
[2022-09-02] MEDS: METHYLPREDNISOLONE SOD SUCC 40 MG/ML VIAL IVP SCH ×2 (08:16→21:53)
[2022-09-02] MEDS: METOPROLOL TARTRATE 25 MG TABLET PO SCH ×2 (08:16→21:00)
[2022-09-02] MEDS: NACL 0.9% 1,000 ML IV SCH ×2 (08:17→19:05)
[2022-09-02] MEDS: FAMOTIDINE 20 MG TABLET PO SCH (08:18)
[2022-09-02] MEDS: AZITHROMYCIN 250 MG in NS 250 ML IV SCH (08:22)
--- NOTE | 2022-09-02 10:03 | NUR ---
RT NOTES start CPAP Coordinated with TRANG Cantrell. Vent to CPAP 5 PS 10. No apneic episodes, no distress noted. Will monitor pt. at bedside made aware of daily SBT trials.
--- NOTE | 2022-09-02 12:26 | NUR ---
RT NOTES end cpap Although Pt. did not wake-up during SBT, he tolerated CPAP for a little over 2 hours. Vent back to AC. Aaliyah Cantrell made aware.
--- NOTE | 2022-09-02 18:45 | NUR ---
End of Shift Summary: Patient was not responsive throughout the day but has been with family members throughout the shift ( 2 daughters and ). Patient has tolerated care well throughout the shift and had no issues until the PM when needed to titrate sedation to make patient more comfortable. Primary and all consulting physicians came to visit patient today and adjusted treatments as appropriate. Family had the opportunity ask questions of all physicians and physicians got to get information from the family. Patient is continuing to have increased BP and heart rate. Advising oncoming RN to continue to adjust sedation to relax patient.
[2022-09-02] MEDS: FENTANYL CITRATE-0.9 % NACL/PF 100 ML IV PRN (19:30)
[2022-09-02] MEDS: CEFEPIME 1 GM in D5W 50 ML IV SCH (21:20)
[2022-09-03] VITALS (36 sets, daily range): BP systolic 82–135
[2022-09-03] MEDS: levalbuterol HCL 0.63 MG/3 ML VIAL.NEB INH SCH ×4 (01:24→20:06)
[2022-09-03] MEDS: IPRATROPIUM BROM 0.5 MG/2.5 ML VIAL.NEB (ATROVENT) INH SCH ×4 (01:24→20:06)
[2022-09-03] MEDS: FENTANYL CITRATE-0.9 % NACL/PF 100 ML IV PRN (06:00)
[2022-09-03] MEDS: NACL 0.9% 1,000 ML IV SCH ×2 (06:17→13:11)
[2022-09-03 08:51] LABS: HEMATOCRIT 34.1 % (36-54); HEMOGLOBIN 11.2 g/dL (14.0-18.0); MEAN CORPUSCULAR HEMOGLOBIN 31 pg (27-31); MEAN CORPUSCULAR HGB CONC 33 % (32-36); MEAN CORPUSCULAR VOLUME 95 fL (79.0-98.0); PLATELET COUNT (AUTO) 116 K/uL (130-430); RED CELL DISTRIBUTION WIDTH 15.5 % (9.0-15.0); WHITE BLOOD COUNT (AUTO) 13.8 K/uL (4.8-10.8)
[2022-09-03 08:54] LABS: ANION GAP 9 (5-15); CALCIUM 7.5 mg/dL (8.4-11.0); CHLORIDE 106 mmol/L (98-107); CREATININE 1.59 mg/dL (0.55-1.30); GLUCOSE 301 mg/dL (70-99); UREA NITROGEN, BLOOD 74 mg/dL (8-21)
[2022-09-03] MEDS: METHYLPREDNISOLONE SOD SUCC 40 MG/ML VIAL IVP SCH ×2 (09:12→22:01)
[2022-09-03] MEDS: FUROSEMIDE 20 MG TABLET PO SCH (09:13)
[2022-09-03] MEDS: METOPROLOL TARTRATE 25 MG TABLET PO SCH ×2 (09:14→21:00)
[2022-09-03] MEDS: FAMOTIDINE 20 MG TABLET PO SCH (09:15)
[2022-09-03] MEDS: CHOLECALCIFEROL (VITAMIN D3) 2,000 UNIT TABLET PO SCH (09:15)
[2022-09-03] MEDS: ENOXAPARIN SODIUM 30 MG/0.3 ML SYRINGE SUBCUT SCH (09:15)
--- NOTE | 2022-09-03 11:51 | NUR ---
Patient is resting well. Granddaughter has remained at Bedside throughout the night and to this point in the shift. She indicates that her grandfather has been resting without disturbance throughout the night up to this time.
--- NOTE | 2022-09-03 12:15 | NUR ---
Nutrition F/U RD reviewed pts current EMR including diet hx, physician notes, nursing notes, pertinent labs/meds/procedures, care trends and care activity. Subjective Information RD rounded to ICU and pt was resting w/ granddaughter in the room. RD witnessed Vetot of 9.3, TF Pivot 1.5 running @ 40 mL/hr. RD s/w pts RN, Óscar. He reports that pt is tolerating TF well and was just increased to 40mL. RD informed him that his goal rate is 55mL/hr, so hopefully we can increase to meet his needs. At 40mL/hr, pt is only provided: 1440 kcal, 90 g PRO. Meetin% of lower est kcal and 95% of lower est PRO needs. RN reports that pt has had BM yesterday. Per EMR review: abd soft w/ active bowel sounds; GRV low (30 and under) since 09/01. Pt is not meeting nutritional needs at this time. Current Diet Order/Nutrition Support Pivot 1.5 @ 55mL/hr (goal), FWF 200mL q 4h via NGT x 3 days % PO intake N/A Last BM 09/03 x 1 Estimated Energy Expenditure (kcals/day) 4440-2085 (30-35 kcal/kg IBW d/t COPD, underwt status) Estimated Protein Required (g/day) 95-146 (1.3-2 gm/kg IBW d/t COPD, underwt status) Estimated Fluid Required (l/day) 2.2-2.6 (1 ml/kcal/day for GERIAT maintenance) Problem/Etiology/Signs/Symptoms Inadequate EN support R/T catabolic illness and pathophysiological factors AEB current TF prescription meets <80% of estimated nutritional needs. Expected Outcomes/Goals - Monitor tolerance to EN support w/ goal of pt meeting >80% of estimated nutritional needs, labs trending WNL, normal GI function, and skin integrity/wt maintenance Dietitian Recommendations * Pivot 1.5 at 55 ml/hr (goal rate), Free Water Flush: 200 ml Q4h via NGT Provides: 1980 kcal/day, 124 gm protein/day, and 1790 ml free water/day Meets: 90% of lower end of estimated caloric needs, 85% of upper end of estimated protein needs, and 81% of lower end of estimated fluid needs Follow up *High risk: f/u in 2-3 days GS, MPH, RD
--- NOTE | 2022-09-03 12:17 | NUR ---
Dietitian Recommendations * Pivot 1.5 at 55 ml/hr (goal rate), Free Water Flush: 200 ml Q4h via NGT Provides: 1980 kcal/day, 124 gm protein/day, and 1790 ml free water/day Meets: 90% of lower end of est caloric needs, 85% of upper end of est protein needs, and 81% of lower end of est fluid needs GS, MPH, RD Please refer to Nutrition F/U for further details. Thanks!
[2022-09-03 14:18] LABS: BAND % (MANUAL) 12 % (0-6); LYMPHOCYTES % (MANUAL) 6 % (20-46)
[2022-09-03 14:19] LABS: BASOPHILS % (MANUAL) 0 % (0-2); EOSINOPHILS % (MANUAL) 0 % (0-7); METAMYELOCYTES % 0 % (0-0); MONOCYTES % (MANUAL) 0 % (0-11); MYELOCYTES % 3 % (0-0); PROMYELOCYTES % 0 % (0-0)
[2022-09-03 14:20] LABS: BLASTS, MANUAL % 0 % (0-0); OTHER CELLS,MANUAL % 0 (0-0)
--- NOTE | 2022-09-03 18:53 | NUR ---
End of Shift Summary: Patient continues through the day to remain calm but then after 5 PM as did yesterday, patient begins again to romero the ventilator. RN has adjusted sedatives to help make patient more comfortable. Patient's ABG and CXR shows slight changes today. Discussed with MD's that came to bedside today. Medical plans are being adjusted based upon test results at this time.
[2022-09-03] MEDS: CEFEPIME 1 GM in D5W 50 ML IV SCH (21:59)
[2022-09-04] VITALS (48 sets, daily range): BP systolic 85–170
[2022-09-04] MEDS: NACL 0.9% 1,000 ML IV SCH ×2 (01:00→10:19)
[2022-09-04] MEDS: IPRATROPIUM BROM 0.5 MG/2.5 ML VIAL.NEB (ATROVENT) INH SCH ×4 (01:20→19:24)
[2022-09-04] MEDS: levalbuterol HCL 0.63 MG/3 ML VIAL.NEB INH SCH ×4 (01:21→19:24)
[2022-09-04] MEDS ORDERED: METOPROLOL TARTRATE 5 MG/5 ML VIAL ONE (02:56)
--- NOTE | 2022-09-04 03:25 | NUR ---
RT NOTES @0325 FIO2 INCREASE TO 45% TO KEEP SAT ABOVE .92 RN MADE AWARE.
[2022-09-04] MEDS: FENTANYL CITRATE-0.9 % NACL/PF 100 ML IV PRN ×2 (03:30→12:06)
[2022-09-04 05:59] LABS: BASOPHILS % (AUTO) 0.1 % (0.0-2.0); HEMATOCRIT 37.6 % (36-54); HEMOGLOBIN 12.2 g/dL (14.0-18.0); LYMPHOCYTES # (AUTO) 0.1 K/uL (1.0-5.5); LYMPHOCYTES % (AUTO) 0.7 % (20.5-51.5); MEAN CORPUSCULAR HEMOGLOBIN 31 pg (27-31); MEAN CORPUSCULAR HGB CONC 32 % (32-36); MEAN CORPUSCULAR VOLUME 96 fL (79.0-98.0); MONOCYTES # (AUTO) 0.4 K/uL (0.0-1.0); MONOCYTES % (AUTO) 1.8 % (1.7-9.3); NEUTROPHILS # (AUTO) 19.7 K/uL (1.8-7.7); NEUTROPHILS % (AUTO) 97.4 % (40.0-70.0); PLATELET COUNT (AUTO) 145 K/uL (130-430); RED BLOOD CELL COUNT(AUTO) 3.92 MIL/uL (4.2-6.2); RED CELL DISTRIBUTION WIDTH 15.5 % (9.0-15.0); WHITE BLOOD COUNT (AUTO) 20.2 K/uL (4.8-10.8)
[2022-09-04 06:42] LABS: ALANINE AMINOTRANSFERASE 50 U/L (12-78); ALBUMIN 1.8 g/dL (3.4-4.8); ANION GAP 9 (5-15); ASPARTATE AMINOTRANSFERASE 12 U/L (10-37); CALCIUM 7.3 mg/dL (8.4-11.0); CHLORIDE 107 mmol/L (98-107); CREATININE 1.71 mg/dL (0.55-1.30); GLUCOSE 387 mg/dL (70-99); TOTAL BILIRUBIN 0.3 mg/dL (0.0-1.0); UREA NITROGEN, BLOOD 78 mg/dL (8-21)
--- NOTE | 2022-09-04 08:33 | NUR ---
RT NOTES 0830 MD Ball titrated fio2 to 30%. pt saturating 95%. HR 120. Will try CPAP coordinate with RN with sedation, and pt BP maintain/ HR stable. will cont to monitor pt.
[2022-09-04] MEDS: BUDESONIDE 0.5 MG/2 ML AMPUL.NEB INH SCH ×2 (09:00→19:24)
[2022-09-04] MEDS: METHYLPREDNISOLONE SOD SUCC 40 MG/ML VIAL IVP SCH ×2 (10:15→20:59)
[2022-09-04] MEDS: ENOXAPARIN SODIUM 30 MG/0.3 ML SYRINGE SUBCUT SCH (10:16)
[2022-09-04] MEDS: FUROSEMIDE 20 MG/2 ML VIAL IVP SCH ×2 (10:16→21:00)
[2022-09-04] MEDS: CHOLECALCIFEROL (VITAMIN D3) 2,000 UNIT TABLET PO SCH (10:17)
[2022-09-04] MEDS: METOPROLOL TARTRATE 25 MG TABLET PO SCH ×2 (10:17→21:00)
[2022-09-04] MEDS: ASPIRIN 81 MG TABLET(ECOTRIN) PO SCH (10:18)
[2022-09-04] MEDS: FAMOTIDINE 20 MG TABLET PO SCH (10:18)
[2022-09-04] MEDS: ACETAMINOPHEN 325 MG TABLET PO PRN (10:55)
[2022-09-04] MEDS ORDERED: PIPERACILLIN/TAZO 3.375/DEX-IS 50 ML IV ONE (14:45)
--- NOTE | 2022-09-04 15:00 | NUR ---
RT NOTES 1500 INCREASED FIO2 TO 40%, PT WAS DESATURATING. WILL CONT TO MONITOR PT, RN JAKY MADE AWARE.
--- NOTE | 2022-09-04 17:37 | NUR ---
RT NOTES 1737 NO CPAP TRIAL DONE TODAY DUE TO HIGH HR AND UNSTABLE BP. WILL TRY TOMORROW IF POSSIBLE.
--- NOTE | 2022-09-04 17:40 | NUR ---
End of Shift Summary: Patient during the morning had increased heart rate, Blood pressure and temperature. RN contacted Dr. Roman to discuss state of ID treatment and what should be done. Dr. Roman came in to evaluate patient and labs. He changed the patient's prescription for antibiotics. Patient now on Zosyn and within hours of patient's receiving the medication, vital signs have normalized, patient's temperature went down and all of patient's physical signs improved. Family is at bedside throughout the day and RN had extensive discussion of patient's needs and responses. Answered all questions and discussed eventualities with patient as he remains intubated. Currently, patient is without signs or symptoms of acute distress or discomfort at end of shift.
[2022-09-04] MEDS: PIPERACILLIN/TAZO 3.375/DEX-IS 50 ML IV SCH (18:17)
--- NOTE | 2022-09-04 19:20 | NUR ---
Report received from TRANG Cantrell. Will continue with POC; IVF: NS infusing at 100 ml/hr; Fentanyl infusing at 25 mcg/hr; Precedix infusing at 105 mcg/kgmmin; Levophed drip infusing at 0.2 mcg/kg/min; PIVOT 1.5 RNGT Feeding at 45 ml/hr. RASS -3. Patient intubated with ETT 7.5 at 26 CM L/L to vent. Vent Settings: AC 22 Vt 400 FiO2 40% PEEP 5. Will continue to monitor VS, focus on BP, RASS, and clinical Stauss.
--- NOTE | 2022-09-04 20:40 | NUR ---
Precedex stopped D/T discontinued order.
[2022-09-04] MEDS: METOPROLOL TARTRATE 5 MG/5 ML VIAL IVP PRN ×2 (21:02→22:53)
--- NOTE | 2022-09-04 22:30 | NUR ---
HR 151 BP 170/108. Levophed drip stopped. Lopressor 2.5 mg IVP given.
--- NOTE | 2022-09-04 23:30 | NUR ---
BP 85/50. Levophed drip restarted at 0.05 mcg/kg/min.
[2022-09-05] VITALS (47 sets, daily range): BP systolic 71–145
[2022-09-05] MEDS: PIPERACILLIN/TAZO 3.375/DEX-IS 50 ML IV SCH ×4 (00:25→17:07)
[2022-09-05] MEDS: levalbuterol HCL 0.63 MG/3 ML VIAL.NEB INH SCH ×4 (01:31→19:31)
[2022-09-05] MEDS: IPRATROPIUM BROM 0.5 MG/2.5 ML VIAL.NEB (ATROVENT) INH SCH ×4 (01:31→19:32)
--- NOTE | 2022-09-05 03:58 | NUR ---
Patient went into V-Tach witnessed by GISELA Corbett as tag writer was to lunch. GISELA gave Lopressor 2.5 mg IVP.
--- NOTE | 2022-09-05 04:15 | NUR ---
BP 170/110 HR 131. Levophed drip stopped.
[2022-09-05] MEDS: MIDAZOLAM IN NACL,ISO-OSMOT/PF 100 ML IV PRN (04:17)
[2022-09-05] MEDS: METOPROLOL TARTRATE 5 MG/5 ML VIAL IVP PRN (04:39)
--- NOTE | 2022-09-05 04:45 | NUR ---
BP 71/40. Levophed drip re-started at 0.05 mcg/kg/min.
--- NOTE | 2022-09-05 05:21 | NUR ---
BP 83/48. Levophed drip increase to 0.1 mcg/kg/min.
[2022-09-05 05:28] LABS: BASOPHILS % (AUTO) 0.1 % (0.0-2.0); HEMATOCRIT 39.8 % (36-54); HEMOGLOBIN 12.9 g/dL (14.0-18.0); LYMPHOCYTES # (AUTO) 0.2 K/uL (1.0-5.5); LYMPHOCYTES % (AUTO) 0.9 % (20.5-51.5); MEAN CORPUSCULAR HEMOGLOBIN 31 pg (27-31); MEAN CORPUSCULAR HGB CONC 32 % (32-36); MEAN CORPUSCULAR VOLUME 97 fL (79.0-98.0); MONOCYTES # (AUTO) 0.6 K/uL (0.0-1.0); MONOCYTES % (AUTO) 2.6 % (1.7-9.3); NEUTROPHILS # (AUTO) 22.6 K/uL (1.8-7.7); NEUTROPHILS % (AUTO) 96.4 % (40.0-70.0); PLATELET COUNT (AUTO) 131 K/uL (130-430); RED BLOOD CELL COUNT(AUTO) 4.13 MIL/uL (4.2-6.2); RED CELL DISTRIBUTION WIDTH 16.1 % (9.0-15.0); WHITE BLOOD COUNT (AUTO) 23.4 K/uL (4.8-10.8)
--- NOTE | 2022-09-05 06:00 | NUR ---
NGT Feeding Pivot 1.5 increase to 50 ml/hr.
[2022-09-05 06:01] LABS: ALANINE AMINOTRANSFERASE 46 U/L (12-78); ALBUMIN 1.6 g/dL (3.4-4.8); ANION GAP 9 (5-15); ASPARTATE AMINOTRANSFERASE 16 U/L (10-37); CALCIUM 7.5 mg/dL (8.4-11.0); CHLORIDE 109 mmol/L (98-107); CREATININE 1.77 mg/dL (0.55-1.30); TOTAL BILIRUBIN 0.3 mg/dL (0.0-1.0); UREA NITROGEN, BLOOD 96 mg/dL (8-21)
[2022-09-05 06:02] LABS: GLUCOSE 538 mg/dL (70-99)
--- NOTE | 2022-09-05 07:30 | NUR ---
RECEIVED REPORT FROM RN PATIENT INTUBATED, VENT SETTING AC @22, FI02 40%, TV 400, PEEP 5.0, OXYGEN SATURATION AT 96%. PATIENT'S AT BEDSIDE. IV DRIPS DOCUMENTED, TUBE FEEDING @ 50 ML/HR WITH GOAL OF 55 ML/HR.
--- NOTE | 2022-09-05 07:37 | NUR ---
Care endorsed to TRANG Torres.
[2022-09-05] MEDS: BUDESONIDE 0.5 MG/2 ML AMPUL.NEB INH SCH ×2 (07:58→19:31)
[2022-09-05] MEDS ORDERED: CALCIUM GLUCONATE 2 GM in NS 100 ML IV ONE (08:00)
[2022-09-05] MEDS ORDERED: SODIUM POLYSTYRENE SULFONATE 15 GM/60 ML UDBTL PO ONE (08:00)
[2022-09-05] MEDS ORDERED: INSULIN REGULAR, HUMAN 10 UNITS/0.1 ML, 3 ML VIAL IVP ONE (08:00)
[2022-09-05] MEDS ORDERED: DEXTROSE 50% JECT 50 ML DISP.SYRIN IVP PRN (08:30)
[2022-09-05] MEDS: FAMOTIDINE 20 MG TABLET PO SCH (08:48)
[2022-09-05] MEDS: CHOLECALCIFEROL (VITAMIN D3) 2,000 UNIT TABLET PO SCH (08:48)
[2022-09-05] MEDS: METOPROLOL TARTRATE 25 MG TABLET PO SCH ×3 (08:48→22:08)
[2022-09-05] MEDS: METHYLPREDNISOLONE SOD SUCC 40 MG/ML VIAL IVP SCH ×2 (08:50→22:05)
[2022-09-05] MEDS: FUROSEMIDE 20 MG/2 ML VIAL IVP SCH ×2 (08:50→22:07)
[2022-09-05] MEDS: ENOXAPARIN SODIUM 30 MG/0.3 ML SYRINGE SUBCUT SCH (08:50)
[2022-09-05] MEDS ORDERED: INSULIN GLARGINE 100 UNITS/ML, 10 ML VIAL SUBCUT SCH (09:00)
[2022-09-05] MEDS: NOREPINEPHRINE BITARTRATE 32 MG in NS 218 ML IV PRN (11:31)
[2022-09-05] MEDS ORDERED: INSULIN REGULAR, HUMAN 100 UNITS/ML, 3 ML VIAL SUBCUT ONE ×2 (12:15→17:30)
[2022-09-05] MEDS: INSULIN REGULAR, HUMAN 100 UNITS/ML, 3 ML VIAL (humuLIN R) SUBCUT PRN ×2 (12:25→17:21)
[2022-09-05] MEDS ORDERED: *LOVENOX 1MG/KG Q24H/PHARMACY XX ONE (15:00)
[2022-09-05 18:01] LABS: ANION GAP 6 (5-15); CHLORIDE 113 mmol/L (98-107); CREATININE 2.06 mg/dL (0.55-1.30)
[2022-09-05 18:06] LABS: GLUCOSE 510 mg/dL (70-99); UREA NITROGEN, BLOOD 101 mg/dL (8-21)
--- NOTE | 2022-09-05 19:22 | NUR ---
TRANG MURCIA AND TRANG BALDWIN WITNESSED WASTE OF 90 ML OF PRECEDEX WITH CONCENTRATION OF 400 MCG/100ML AND WASTE OF 70 ML OF VERSED WITH CONCENTRATION OF 100 MG/100ML.
[2022-09-05] MEDS: 0.45% NACL 1,000 ML IV SCH (20:00)
[2022-09-05] MEDS ORDERED: INSULIN REGULAR, HUMAN 100 UNITS in NS 99 ML IV PRN ×2 (20:00)
--- NOTE | 2022-09-05 20:00 | NUR ---
OPENING NOTE PATIENT INTUBATED, VENT SETTING AC @22, FI02 40%, TV 400, PEEP 5.0, OXYGEN SATURATION AT 96%. PATIENT'S AT BEDSIDE. IV DRIPS ARE VERSED, FENTANYL AND LEVO. TUBE FEEDING OFF AT THIS TIME R/T HIGH BS. TUBE FEEDING A GOAL OF 55 ML/HR.
--- NOTE | 2022-09-05 22:05 | NUR ---
INSULIN DRIP NEW ORDER FOR INSULIN DRIP TO BEGIN WHEN AVAILABLE
[2022-09-05] MEDS: INSULIN GLARGINE 100 UNITS/ML, 10 ML VIAL SUBCUT SCH (22:10)
--- NOTE | 2022-09-05 22:55 | NUR ---
STOOL PT HAD LARGE LOOSE WATERY STOOL X1
--- NOTE | 2022-09-05 23:30 | NUR ---
INSULIN DRIP STARTED CURRENT BS WAS 428 AND INSULIN DRIP STARTED PER
[2022-09-06] VITALS (22 sets, daily range): BP systolic 86–117
--- NOTE | 2022-09-06 | NUR ---
CRITICAL LAB BS OF [id number]
[2022-09-06] MEDS: IPRATROPIUM BROM 0.5 MG/2.5 ML VIAL.NEB (ATROVENT) INH SCH ×4 (00:06→20:10)
[2022-09-06] MEDS: levalbuterol HCL 0.63 MG/3 ML VIAL.NEB INH SCH ×4 (00:06→20:10)
[2022-09-06] MEDS: PIPERACILLIN/TAZO 3.375/DEX-IS 50 ML IV SCH ×4 (00:40→17:17)
--- NOTE | 2022-09-06 01:00 | NUR ---
CRITICAL LAB BS OF 404
--- NOTE | 2022-09-06 02:00 | NUR ---
CRITICAL LAB BS OF 402
[2022-09-06] MEDS: METOPROLOL TARTRATE 5 MG/5 ML VIAL IVP PRN ×3 (02:13→23:02)
--- NOTE | 2022-09-06 02:15 | NUR ---
STOOL PT HAD LARGE WATERY STOOL X2
[2022-09-06] MEDS: FENTANYL CITRATE-0.9 % NACL/PF 100 ML IV PRN (02:35)
--- NOTE | 2022-09-06 03:00 | NUR ---
BS RESULT BS OF 391
--- NOTE | 2022-09-06 04:00 | NUR ---
BS RESULT BS OF 380
--- NOTE | 2022-09-06 05:00 | NUR ---
BS RESULT BS OF 369
[2022-09-06 05:30] LABS: BASOPHILS % (AUTO) 0.2 % (0.0-2.0); HEMATOCRIT 38.5 % (36-54); HEMOGLOBIN 12.3 g/dL (14.0-18.0); LYMPHOCYTES # (AUTO) 0.1 K/uL (1.0-5.5); LYMPHOCYTES % (AUTO) 0.6 % (20.5-51.5); MEAN CORPUSCULAR HEMOGLOBIN 30 pg (27-31); MEAN CORPUSCULAR HGB CONC 32 % (32-36); MEAN CORPUSCULAR VOLUME 95 fL (79.0-98.0); MONOCYTES # (AUTO) 0.5 K/uL (0.0-1.0); MONOCYTES % (AUTO) 2.5 % (1.7-9.3); NEUTROPHILS % (AUTO) 96.7 % (40.0-70.0); PLATELET COUNT (AUTO) 141 K/uL (130-430); RED BLOOD CELL COUNT(AUTO) 4.03 MIL/uL (4.2-6.2); RED CELL DISTRIBUTION WIDTH 15.9 % (9.0-15.0); WHITE BLOOD COUNT (AUTO) 21.7 K/uL (4.8-10.8)
[2022-09-06] MEDS: MIDAZOLAM IN NACL,ISO-OSMOT/PF 100 ML IV PRN (05:36)
[2022-09-06 05:59] LABS: ANION GAP 8 (5-15); CALCIUM 7.7 mg/dL (8.4-11.0); CHLORIDE 113 mmol/L (98-107); CREATININE 2.21 mg/dL (0.55-1.30)
[2022-09-06 06:21] LABS: GLUCOSE 438 mg/dL (70-99); UREA NITROGEN, BLOOD 107 mg/dL (8-21)
--- NOTE | 2022-09-06 07:00 | NUR ---
BS RESULT BS WAS 369
[2022-09-06] MEDS: BUDESONIDE 0.5 MG/2 ML AMPUL.NEB INH SCH ×2 (07:30→20:10)
--- NOTE | 2022-09-06 07:30 | NUR ---
RECEIVED REPORT FROM RN. NO CHANGES TO VENT SETTINGS, NGT FEEDING GOAL MET AT 55 ML/HR OF PIVOT 1.5, INSULIN IV DRIP STARTED BY CROP OR GRAIN FARMER RN.
[2022-09-06] MEDS ORDERED: INSULIN REGULAR, HUMAN 100 UNITS in NS 99 ML IV PRN ×2 (07:45)
[2022-09-06] MEDS: FUROSEMIDE 20 MG/2 ML VIAL IVP SCH ×2 (08:46→21:41)
[2022-09-06] MEDS: METHYLPREDNISOLONE SOD SUCC 40 MG/ML VIAL IVP SCH ×2 (08:46→21:41)
[2022-09-06] MEDS: ASPIRIN 81 MG TABLET(ECOTRIN) PO SCH (08:49)
[2022-09-06] MEDS: CHOLECALCIFEROL (VITAMIN D3) 2,000 UNIT TABLET PO SCH (08:49)
[2022-09-06] MEDS: FAMOTIDINE 20 MG TABLET PO SCH (08:49)
[2022-09-06] MEDS: ENOXAPARIN SODIUM 60 MG/0.6 ML SYRINGE SUBCUT SCH (08:49)
[2022-09-06] MEDS: INSULIN GLARGINE 100 UNITS/ML, 10 ML VIAL SUBCUT SCH ×2 (08:54→21:43)
[2022-09-06] MEDS ORDERED: DEXTROSE 50% JECT 50 ML DISP.SYRIN IVP PRN (09:30)
[2022-09-06] MEDS: INSULIN REGULAR, HUMAN 100 UNITS in NS 99 ML IV PRN ×4 (09:46→12:54)
--- NOTE | 2022-09-06 10:13 | NUR ---
ALERT NOTE: Called Dr. RODGERS back at [phone] identified within the medical roster to verify physician authenticity. SPOKE WITH DR RODGERS AND HE ORDERED INSULIN DRIP ALGORITH #3, READ BACK VERIFIED.
--- NOTE | 2022-09-06 13:45 | NUR ---
Nutrition F/U RD reviewed pts current EMR including diet hx, physician notes, nursing notes, pertinent labs/meds/procedures, care trends and care activity. Admitting Dx: COPD, Pneumonia Subjective Information: RD Notification received 09/05/22 2305 and Nutrition Consult d/t elevated BG, TF rec 09/06/[address] rounded to ICU and spoke w/ primary RN. He reported that pt's TF was reduced to new goal rate of 45 ml/hr, and pt has been tolerating TF well. New sliding scale was ordered by physician yesterday, and hopeful that BG will normalize. Bedside BG have been between 275-514 mg/dl. Per LOS meeting this morning, plan for family meeting by end of the week to determine pt's POC. Current Diet Order/Nutrition Support: Pivot 1.5 at 55 ml/hr (goal), Free Water Flush: 200 ml Q4h via NGT x9 days Ht: 5'9". Wt: 110#/50 kg (stable since 08/31). BMI: 16.2 kg/m2 (underwt, at risk for malnutrition) % PO intake N/A Last BM 09/03 x2 Estimated Energy Expenditure (kcals/day) 4936-8643 (30-35 kcal/kg IBW d/t COPD, underwt status) Estimated Protein Required (g/day) 95-146 (1.3-2 gm/kg IBW d/t COPD, underwt status) Estimated Fluid Required (l/day) 2.2-2.6 (1 ml/kcal/day for GERIAT maintenance) Problem/Etiology/Signs/Symptoms Inadequate EN support R/T catabolic illness and pathophysiological factors AEB current TF prescription meets <80% of estimated nutritional needs. *Improving Expected Outcomes/Goals - Monitor tolerance to EN support w/ goal of pt meeting >80% of estimated nutritional needs, labs trending WNL, normal GI function, and skin integrity/wt maintenance Dietitian Recommendations * Pivot 1.5 at 45 ml/hr (new goal rate), Free Water Flush: 200 ml Q4h via NGT Provides: 1620 kcal/day, 101 gm protein/day, and 2010 ml free water/day Meets: 106% of estimated caloric needs and 92% of upper end of estimated protein needs Follow up * High Risk: RD to F/U within 2-3 days
--- NOTE | 2022-09-06 14:00 | NUR ---
Dietitian Recommendations * Pivot 1.5 at 45 ml/hr (new goal rate), Free Water Flush: 200 ml Q4h via NGT Provides: 1620 kcal/day, 101 gm protein/day, and 2010 ml free water/day Meets: 106% of estimated caloric needs and 92% of upper end of estimated protein needs LP, MS, RD Please refer to Nutrition F/U for details.
[2022-09-06] MEDS: 0.45% NACL 1,000 ML IV SCH (16:00)
[2022-09-06] MEDS: METOPROLOL TARTRATE 25 MG TABLET PO SCH (21:41)
[2022-09-06] MEDS: NOREPINEPHRINE BITARTRATE 32 MG in NS 218 ML IV PRN (21:50)
[2022-09-07] VITALS (34 sets, daily range): BP systolic 80–142
[2022-09-07] MEDS: PIPERACILLIN/TAZO 3.375/DEX-IS 50 ML IV SCH ×4 (00:45→18:18)
[2022-09-07] MEDS: FENTANYL CITRATE-0.9 % NACL/PF 100 ML IV PRN ×2 (00:59→22:00)
[2022-09-07] MEDS: INSULIN REGULAR, HUMAN 100 UNITS in NS 99 ML IV PRN ×2 (01:12)
[2022-09-07] MEDS: METOPROLOL TARTRATE 5 MG/5 ML VIAL IVP PRN ×2 (05:04→15:45)
--- NOTE | 2022-09-07 06:20 | NUR ---
RT NOTES Called to bedside, abnormal breathing pattern noted. although diminished Bilat. b/s/chest rise noted. HHN tx given. Will monitor pt.
[2022-09-07 06:29] LABS: BASOPHILS % (AUTO) 0.1 % (0.0-2.0); HEMATOCRIT 38.7 % (36-54); HEMOGLOBIN 12.4 g/dL (14.0-18.0); LYMPHOCYTES # (AUTO) 0.1 K/uL (1.0-5.5); LYMPHOCYTES % (AUTO) 0.7 % (20.5-51.5); MEAN CORPUSCULAR HEMOGLOBIN 31 pg (27-31); MEAN CORPUSCULAR HGB CONC 32 % (32-36); MEAN CORPUSCULAR VOLUME 96 fL (79.0-98.0); MONOCYTES # (AUTO) 0.7 K/uL (0.0-1.0); MONOCYTES % (AUTO) 3.3 % (1.7-9.3); NEUTROPHILS # (AUTO) 21.3 K/uL (1.8-7.7); NEUTROPHILS % (AUTO) 95.9 % (40.0-70.0); PLATELET COUNT (AUTO) 152 K/uL (130-430); RED BLOOD CELL COUNT(AUTO) 4.04 MIL/uL (4.2-6.2); RED CELL DISTRIBUTION WIDTH 15.9 % (9.0-15.0); WHITE BLOOD COUNT (AUTO) 22.2 K/uL (4.8-10.8)
[2022-09-07] MEDS: IPRATROPIUM BROM 0.5 MG/2.5 ML VIAL.NEB (ATROVENT) INH SCH ×4 (06:33→20:17)
[2022-09-07] MEDS: levalbuterol HCL 0.63 MG/3 ML VIAL.NEB INH SCH ×3 (06:33→20:17)
[2022-09-07] MEDS: BUDESONIDE 0.5 MG/2 ML AMPUL.NEB INH SCH ×2 (07:08→20:17)
--- NOTE | 2022-09-07 07:51 | NUR ---
HIGH ALERT NOTE: Called Dr. rincon back at [phone] identified within the medical roster to verify physician authenticity. ordered to increase insulin lantus to 20 units BID. read back verified.
[2022-09-07 08:11] LABS: ANION GAP 7 (5-15); CALCIUM 7.8 mg/dL (8.4-11.0); CHLORIDE 112 mmol/L (98-107); CREATININE 2.27 mg/dL (0.55-1.30); GLUCOSE 186 mg/dL (70-99)
[2022-09-07 08:14] LABS: UREA NITROGEN, BLOOD 113 mg/dL (8-21)
--- NOTE | 2022-09-07 09:22 | NUR ---
RT NOTES RN at bedside. Pt is still tachycardic and tachypneic (39), unable to do cpap trial. Will try once pt's breathing condition is stable. Addendum: 09/07/22 at 1009 by Giselle Lua RT WRONG PT.
--- NOTE | 2022-09-07 09:26 | NUR ---
RT NOTES Abnormal breathing pattern noted. Rn made aware. Also discussed CPAP order by Dr Ball, which will be carried out once pt's breathing condition is more stable
--- NOTE | 2022-09-07 09:44 | NUR ---
Update given to [facility] [phone]
[2022-09-07] MEDS: CHOLECALCIFEROL (VITAMIN D3) 2,000 UNIT TABLET PO SCH (09:48)
[2022-09-07] MEDS: FUROSEMIDE 20 MG/2 ML VIAL IVP SCH ×2 (09:48→22:01)
[2022-09-07] MEDS: ENOXAPARIN SODIUM 60 MG/0.6 ML SYRINGE SUBCUT SCH (09:48)
[2022-09-07] MEDS: METHYLPREDNISOLONE SOD SUCC 40 MG/ML VIAL IVP SCH ×2 (09:48→22:01)
[2022-09-07] MEDS: METOPROLOL TARTRATE 25 MG TABLET PO SCH ×2 (09:49→22:02)
[2022-09-07] MEDS: INSULIN GLARGINE 100 UNITS/ML, 10 ML VIAL SUBCUT SCH ×2 (09:51→21:58)
--- NOTE | 2022-09-07 09:54 | NUR ---
RT NOTES Dr Ball called back, ABG results provided. stated that since its fully compensated, no change needed at this time. was made aware of abnormal breathing pattern noted.
[2022-09-07] MEDS: 0.45% NACL 1,000 ML IV SCH (11:25)
[2022-09-07] MEDS: FAMOTIDINE 20 MG TABLET PO SCH (11:26)
[2022-09-07] MEDS ORDERED: INSULIN REGULAR, HUMAN 100 UNITS in NS 99 ML IV PRN ×4 (11:45→18:30)
--- NOTE | 2022-09-07 12:25 | NUR ---
ASHOK THE PHYSICAL THERAPY AIDE FRO DR SHAHIDA BAZAN ON PATIENT, UPDATED ON PLAN OF CARE, ORDERED TO CONTINUE TREATMENT AND INSERT FLEXISEAL FOR LOOSE STOOL AND SKIN BREAKDOWN.
--- NOTE | 2022-09-07 13:43 | NUR ---
WASTED 70ML OF VERSED IV DRIP WITH CONCENTRATION OF 100MG/100L. WASTED BY TRANG HICKS AND WITNESSED BY INDUSTRIAL RELATIONS MANAGER CHUNG.
[2022-09-07] MEDS: ACETAMINOPHEN 325 MG TABLET PO PRN ×2 (16:40→22:03)
[2022-09-08] VITALS (33 sets, daily range): BP systolic 73–134
[2022-09-08] MEDS: PIPERACILLIN/TAZO 3.375/DEX-IS 50 ML IV SCH ×5 (00:15→23:26)
[2022-09-08] MEDS: levalbuterol HCL 0.63 MG/3 ML VIAL.NEB INH SCH ×4 (01:26→19:46)
[2022-09-08] MEDS: IPRATROPIUM BROM 0.5 MG/2.5 ML VIAL.NEB (ATROVENT) INH SCH ×4 (01:26→19:46)
[2022-09-08] MEDS ORDERED: NOREPINEPHRINE 4 MG/4 ML VIAL IV ONE (04:46)
[2022-09-08] MEDS: NOREPINEPHRINE BITARTRATE 32 MG in NS 218 ML IV PRN (04:55)
[2022-09-08 05:44] LABS: BASOPHILS % (AUTO) 0.1 % (0.0-2.0); HEMATOCRIT 36.3 % (36-54); HEMOGLOBIN 11.7 g/dL (14.0-18.0); LYMPHOCYTES # (AUTO) 0.2 K/uL (1.0-5.5); LYMPHOCYTES % (AUTO) 0.9 % (20.5-51.5); MEAN CORPUSCULAR HEMOGLOBIN 31 pg (27-31); MEAN CORPUSCULAR HGB CONC 32 % (32-36); MEAN CORPUSCULAR VOLUME 95 fL (79.0-98.0); MONOCYTES # (AUTO) 0.3 K/uL (0.0-1.0); NEUTROPHILS # (AUTO) 16.4 K/uL (1.8-7.7); PLATELET COUNT (AUTO) 136 K/uL (130-430); RED BLOOD CELL COUNT(AUTO) 3.81 MIL/uL (4.2-6.2); WHITE BLOOD COUNT (AUTO) 16.9 K/uL (4.8-10.8)
[2022-09-08 06:27] LABS: ALANINE AMINOTRANSFERASE 105 U/L (12-78); ALBUMIN 1.2 g/dL (3.4-4.8); ANION GAP 11 (5-15); ASPARTATE AMINOTRANSFERASE 39 U/L (10-37); CALCIUM 7.3 mg/dL (8.4-11.0); CHLORIDE 111 mmol/L (98-107); CREATININE 2.84 mg/dL (0.55-1.30); GLUCOSE 217 mg/dL (70-99); TOTAL BILIRUBIN 0.3 mg/dL (0.0-1.0)
[2022-09-08 06:33] LABS: UREA NITROGEN, BLOOD 131 mg/dL (8-21)
[2022-09-08] MEDS: FENTANYL CITRATE-0.9 % NACL/PF 100 ML IV PRN ×2 (07:29→17:11)
[2022-09-08] MEDS: BUDESONIDE 0.5 MG/2 ML AMPUL.NEB INH SCH ×2 (07:35→19:46)
[2022-09-08] MEDS: 0.45% NACL 1,000 ML IV SCH (08:54)
[2022-09-08] MEDS: INSULIN GLARGINE 100 UNITS/ML, 10 ML VIAL SUBCUT SCH ×2 (09:19→21:24)
[2022-09-08] MEDS: FAMOTIDINE 20 MG TABLET PO SCH (09:20)
[2022-09-08] MEDS: ASPIRIN 81 MG TABLET(ECOTRIN) PO SCH (09:20)
[2022-09-08] MEDS: METOPROLOL TARTRATE 25 MG TABLET PO SCH ×2 (09:20→21:20)
[2022-09-08] MEDS: CHOLECALCIFEROL (VITAMIN D3) 2,000 UNIT TABLET PO SCH (09:20)
[2022-09-08] MEDS: METHYLPREDNISOLONE SOD SUCC 40 MG/ML VIAL IVP SCH ×2 (09:40→21:19)
[2022-09-08] MEDS: ENOXAPARIN SODIUM 60 MG/0.6 ML SYRINGE SUBCUT SCH (09:41)
[2022-09-08] MEDS: FUROSEMIDE 20 MG/2 ML VIAL IVP SCH ×2 (09:42→21:20)
--- NOTE | 2022-09-08 10:14 | NUR ---
DAILY CPAP TRIAL NOT DONE DUE TO TACHYCARDIA, HR 117 AND ABNORMAL BREATHING NOTICED THIS MORNING. WILL CONTINUE TO MONITOR PATIENT.
--- NOTE | 2022-09-08 11:53 | NUR ---
DR RODGERS SPOKE IN MEETING WITH PATIENT SANDY COATS AND PATIENT'S CHILDREN. HE EXPLAINED THE OPTION OF CONTINUING CARE PLANNED OR MAKING PATIENT COMFORT CARE. DR RODGERS ANSWERED ALL QUESTIONS AND PATIENT FAMILY VOICED UNDERSTANDING OF EDUCATION. FAMILY STATES THAT THEY ARE GOING TO CONTINUE DISCUSSING AND WILL PROVIDE AN ANSWER WHEN THEY COME TO A DECISION. SANDY ASKED FOR INFORMATION REGARDING HOW TO COORDINATE WITH A MORTUARY IF PATIENT WERE TO . CONTACTED EGG WORKER AND NOTIFIED HER THAT FAMILY IS PRESENT AND REQUESTING INFORMATION REGARDING THE MORTUARY. DISCUSSED WITH FAMILY ON IF THEY WANT TO CONTINUE WITH THE MODIFIED CODE STATUS OR TO MAKE THE PATIENT A DNR. THE FAMILY ASKED TO CONTINUE DISCUSSING OPTIONS AFTER HAVING BEEN EDUCATED ON ALL OPTIONS. AT THIS TIME THEY ASKED TO CONTINUE THE MODIFIED CODE STATUS UNTIL A DECISION HAS BEEN MADE.
--- NOTE | 2022-09-08 12:30 | NUR ---
Received a call from TRANG Torres requesting me to come by and speak with the family about after life options that the family may be interested in. The family had a family meeting with Dr. Ball about the current state of the patient. The patient is a modified code, and the family remains in discussion about the options that are available. There is minimal disagreement among the family. I met with the and his children in the ICU waiting area. I explained the process of the removal of the body when that time takes place. The were multiple options being discussed among the family as to where the body will or will not go. I provided the with resources on mortuaries, cremation services, and bereavement programs. The was receptive of the information provided. A daughter had questions regarding the completion of [place] paperwork. I referred her back to the patient's PCP, as the hospital dr. ahuja caseworker will sign and complete FMLA paperwork. I explained the 's responsibility on providing a mortuary to the hospital that the hospital will call to arrange for the cone picker when that time comes. At the time of my leaving, the not children had no further questions.
--- NOTE | 2022-09-08 16:09 | NUR ---
HIGH ALERT NOTE: Called Dr. RODGERS back at [phone] identified within the medical roster to verify physician authenticity. DR RODGERS DISCONTINUED INSULIN DRIP AND ORDERED REGULAR SLIDING SCALE WITH Q4H ACCU CHECKS. READ BACK VERIFIED.
[2022-09-08] MEDS: INSULIN REGULAR, HUMAN 100 UNITS/ML, 3 ML VIAL (humuLIN R) SUBCUT PRN ×2 (18:47→23:25)
--- NOTE | 2022-09-08 21:15 | NUR ---
RD Recommendations *Continue Pivot 1.5 at 45 ml/hr (goal rate), Free Water Flush: 200 ml Q4h via NGT per MD Rx Provides: 1620 kcal/day, 101 gm protein/day, and 2010 ml free water/day Meets: 105% of estimated caloric needs and 106% of lower end of estimated protein needs *Consider Glucerna 1.5 vs Pivot 1.5 related to high BG (09/08) Glu 217H Please refer to Nutrition F/U 09/08/22 for details RM, RDN
--- NOTE | 2022-09-08 21:15 | NUR ---
Nutrition F/U RD reviewed pts current EMR including diet hx, physician notes, nursing notes, pertinent labs/meds/procedures, care trends and care activity. Admitting Dx: COPD, Pneumonia Subjective Information: RD Notification received 09/05/22 2305 and Nutrition Consult d/t elevated BG, TF rec 09/06/22 0752. 09/08: RD rounded to ICU and spoke w/ primary RN. RN reported patient continue to tolerate TF well at goal rate of 45 ml/hr, RD witnessed TF running at goal rate. Previous concern of BGs high, currently POC Glu (09/08/22) 180, 182, 147, 131H. Per progress note (09/08/22), patient continues intubated, on vent (VeTot 10.0), on pressor fentanyl and precedex; sepsis on presentation, pneumonia, COPD, hypertension, acute kidney injury improving, end stage lung disease. Per Dr Ball, family leaning toward comfort care and compassionate extubating. Labs (09/08/22) Hgb 11.7, Na 150H, Cl 111H, BUN 131H, Create 2.84, Glu 217H, Ca 7.3L, AST 39H, ALT 105H, Alb 1.2L. Bassam Score 12; ecchymosis noted on right arm and Erythema on right elbow; abdomen soft, non-distended Bed weight: 155.8 lbs. likely due to bed linens and medical equipment; RD to confirm weights Current TF meets nutrient needs Current Diet Order/Nutrition Support: Pivot 1.5 at 55 ml/hr (goal), Free Water Flush: 200 ml Q4h via NGT x9 days Ht: 5'9". Wt: 110#/50 kg BMI: 16.2 kg/m2 (underwt, at risk for malnutrition) % PO intake N/A Last BM 09/07 x2 Estimated Energy Expenditure (kcals/day) 1538 kcal/day ([place] Equation 2003b; VeTot 10.0; Max Temp 37.3 C) Estimated Protein Required (g/day) 95-146 (1.3-2 gm/kg IBW d/t COPD, underwt status) Estimated Fluid Required (l/day) 2.2-2.6 (1 ml/kcal/day for GERIAT maintenance) Problem/Etiology/Signs/Symptoms *Altered nutrition-related lab values r/t renal/endocrine dysfunction and current medical condition AEB labs increased BUN/Create/Gluc *ongoing *Inadequate EN support R/T catabolic illness and pathophysiological factors AEB current TF prescription meets <80% of estimated nutritional needs. *Resolved Expected Outcomes/Goals - Monitor tolerance to EN support w/ goal of pt meeting at least 75% of estimated nutritional needs, labs trending WNL, normal GI function, and skin integrity/wt maintenance Dietitian Recommendations *Continue Pivot 1.5 at 45 ml/hr (goal rate), Free Water Flush: 200 ml Q4h via NGT per MD Rx Provides: 1620 kcal/day, 101 gm protein/day, and 2010 ml free water/day Meets: 105% of estimated caloric needs and 106% of lower end of estimated protein needs *Consider Glucerna 1.5 vs Pivot 1.5 related to high BG (09/08) Glu 217H Follow up * Moderate Risk: RD to F/U within 3-5 days RM, RDN
[2022-09-09] VITALS (29 sets, daily range): BP systolic 94–134
[2022-09-09] MEDS: IPRATROPIUM BROM 0.5 MG/2.5 ML VIAL.NEB (ATROVENT) INH SCH ×4 (01:41→19:53)
[2022-09-09] MEDS: levalbuterol HCL 0.63 MG/3 ML VIAL.NEB INH SCH ×4 (01:42→19:53)
[2022-09-09] MEDS: 0.45% NACL 1,000 ML IV SCH (02:59)
[2022-09-09] MEDS: FENTANYL CITRATE-0.9 % NACL/PF 100 ML IV PRN ×2 (03:03→14:39)
[2022-09-09] MEDS: INSULIN REGULAR, HUMAN 100 UNITS/ML, 3 ML VIAL (humuLIN R) SUBCUT PRN ×5 (03:07→18:40)
[2022-09-09] MEDS: PIPERACILLIN/TAZO 3.375/DEX-IS 50 ML IV SCH ×3 (04:08→18:33)
[2022-09-09] MEDS: NOREPINEPHRINE BITARTRATE 32 MG in NS 218 ML IV PRN (05:22)
[2022-09-09] MEDS: BUDESONIDE 0.5 MG/2 ML AMPUL.NEB INH SCH ×2 (07:22→19:53)
[2022-09-09] MEDS: FUROSEMIDE 20 MG/2 ML VIAL IVP SCH ×2 (09:43→20:42)
[2022-09-09] MEDS: FAMOTIDINE 20 MG TABLET PO SCH (09:43)
[2022-09-09] MEDS: METHYLPREDNISOLONE SOD SUCC 40 MG/ML VIAL IVP SCH ×2 (09:43→20:41)
[2022-09-09] MEDS: CHOLECALCIFEROL (VITAMIN D3) 2,000 UNIT TABLET PO SCH (09:43)
[2022-09-09] MEDS: METOPROLOL TARTRATE 25 MG TABLET PO SCH ×2 (09:43→20:43)
[2022-09-09] MEDS: ENOXAPARIN SODIUM 60 MG/0.6 ML SYRINGE SUBCUT SCH (09:43)
[2022-09-09] MEDS: INSULIN GLARGINE 100 UNITS/ML, 10 ML VIAL SUBCUT SCH ×2 (09:49→20:46)
[2022-09-09 11:02] LABS: ALANINE AMINOTRANSFERASE 62 U/L (12-78); ANION GAP 8 (5-15); ASPARTATE AMINOTRANSFERASE 24 U/L (10-37); CALCIUM 7.5 mg/dL (8.4-11.0); CHLORIDE 111 mmol/L (98-107); CREATININE 3.14 mg/dL (0.55-1.30); GLUCOSE 266 mg/dL (70-99); TOTAL BILIRUBIN 0.4 mg/dL (0.0-1.0)
[2022-09-09 11:29] LABS: UREA NITROGEN, BLOOD 148 mg/dL (8-21)
[2022-09-09] MEDS ORDERED: SODIUM POLYSTYRENE SULFONATE 15 GM/60 ML UDBTL PO ONE (14:45)
[2022-09-10] VITALS (21 sets, daily range): BP systolic 100–138
[2022-09-10] MEDS: 0.45% NACL 1,000 ML IV SCH (00:25)
[2022-09-10] MEDS: PIPERACILLIN/TAZO 3.375/DEX-IS 50 ML IV SCH ×4 (00:26→17:33)
[2022-09-10] MEDS: INSULIN REGULAR, HUMAN 100 UNITS/ML, 3 ML VIAL (humuLIN R) SUBCUT PRN ×2 (00:28→06:54)
[2022-09-10] MEDS: FENTANYL CITRATE-0.9 % NACL/PF 100 ML IV PRN ×2 (00:29→08:11)
[2022-09-10] MEDS: levalbuterol HCL 0.63 MG/3 ML VIAL.NEB INH SCH ×3 (01:49→13:00)
[2022-09-10] MEDS: IPRATROPIUM BROM 0.5 MG/2.5 ML VIAL.NEB (ATROVENT) INH SCH ×3 (01:49→13:00)
[2022-09-10] MEDS ORDERED: NOREPINEPHRINE 4 MG/4 ML VIAL IV ONE ×2 (02:28)
[2022-09-10] MEDS: NOREPINEPHRINE BITARTRATE 32 MG in NS 218 ML IV PRN (02:51)
[2022-09-10 06:29] LABS: BASOPHILS # (AUTO) 0.1 K/uL (0.0-0.2); BASOPHILS % (AUTO) 0.3 % (0.0-2.0); HEMATOCRIT 35.1 % (36-54); HEMOGLOBIN 11.1 g/dL (14.0-18.0); LYMPHOCYTES # (AUTO) 0.2 K/uL (1.0-5.5); LYMPHOCYTES % (AUTO) 0.9 % (20.5-51.5); MEAN CORPUSCULAR HEMOGLOBIN 30 pg (27-31); MEAN CORPUSCULAR HGB CONC 32 % (32-36); MEAN CORPUSCULAR VOLUME 95 fL (79.0-98.0); MONOCYTES # (AUTO) 0.4 K/uL (0.0-1.0); MONOCYTES % (AUTO) 1.7 % (1.7-9.3); NEUTROPHILS # (AUTO) 21.1 K/uL (1.8-7.7); NEUTROPHILS % (AUTO) 97.1 % (40.0-70.0); PLATELET COUNT (AUTO) 176 K/uL (130-430); RED BLOOD CELL COUNT(AUTO) 3.71 MIL/uL (4.2-6.2); RED CELL DISTRIBUTION WIDTH 15.5 % (9.0-15.0); WHITE BLOOD COUNT (AUTO) 21.8 K/uL (4.8-10.8)
[2022-09-10 07:04] LABS: ALANINE AMINOTRANSFERASE 71 U/L (12-78); ALBUMIN 1.1 g/dL (3.4-4.8); ANION GAP 12 (5-15); ASPARTATE AMINOTRANSFERASE 24 U/L (10-37); CALCIUM 7.5 mg/dL (8.4-11.0); CHLORIDE 112 mmol/L (98-107); CREATININE 3.55 mg/dL (0.55-1.30); GLUCOSE 289 mg/dL (70-99); TOTAL BILIRUBIN 0.2 mg/dL (0.0-1.0)
[2022-09-10 07:11] LABS: UREA NITROGEN, BLOOD 145 mg/dL (8-21)
[2022-09-10] MEDS: BUDESONIDE 0.5 MG/2 ML AMPUL.NEB INH SCH (07:39)
[2022-09-10] MEDS: METHYLPREDNISOLONE SOD SUCC 40 MG/ML VIAL IVP SCH (09:00)
[2022-09-10] MEDS: FUROSEMIDE 20 MG/2 ML VIAL IVP SCH (09:00)
[2022-09-10] MEDS: ENOXAPARIN SODIUM 60 MG/0.6 ML SYRINGE SUBCUT SCH (09:00)
[2022-09-10] MEDS: METOPROLOL TARTRATE 25 MG TABLET PO SCH (09:00)
[2022-09-10] MEDS: CHOLECALCIFEROL (VITAMIN D3) 2,000 UNIT TABLET PO SCH (09:00)
[2022-09-10] MEDS: INSULIN GLARGINE 100 UNITS/ML, 10 ML VIAL SUBCUT SCH (09:00)
[2022-09-10] MEDS: FAMOTIDINE 20 MG TABLET PO SCH (09:00)
--- NOTE | 2022-09-10 09:15 | NUR ---
DR. ALMANZA ROUNDED AT BEDSIDE. PRESENT IN PATIENT'S ROOM, ALL QUESTIONS ANSWERED BY PROVIDER. FAMILY IN AGREEMENT THAT THEY WANT TERMINAL EXTUBATION TO TAKE PLACE AT 1300 TODAY. ORDERS GIVEN BY DR. ALMANZA TO D/C ALL MEDICATION AND AT 12 PM TO START MORPHINE DRIP AND ATIVAN 1 MG EVERY HOUR.
--- NOTE | 2022-09-10 10:10 | NUR ---
CALLED [facility] AND SPOKE TO JEREMÍAS. REF# [id number]
[2022-09-10] MEDS ORDERED: COMMUNICATION ORDER XX ONE (12:00)
[2022-09-10] MEDS ORDERED: MORPHINE SULFATE IN 0.9 % NACL 100 ML IV PRN (12:00)
[2022-09-10] MEDS ORDERED: LORazepam 2 MG/ML VIAL IVP PRN (12:00)
--- NOTE | 2022-09-10 13:00 | NUR ---
AT THIS TIME FAMILY HAS PLANS TO TERMINALLY EXTUBATE PATIENT TODAY AT 1300. HOWEVER, PATIENT'S STATES SHE IS AWAITING TWO MORE HER CHILDREN TO GET TO THE HOSPITAL.
[2022-09-10] MEDS: ACETAMINOPHEN 325 MG TABLET PO PRN (15:12)
--- NOTE | 2022-09-10 17:00 | NUR ---
MORPHINE DRIP STARTED. FAMILY REQUESTING TO BE PRESENT WHEN ET TUBE IS REMOVED FROM PATIENT.
--- NOTE | 2022-09-10 17:44 | NUR ---
RT NOTES 1740 PT TERMINALLY EXTUBATED AND PLACED ON 1L NC. FAMILY IS AT BEDSIDE. Addendum: 09/10/22 at 1745 by Cyndy Jeter RT Amended: Links added.
--- NOTE | 2022-09-10 18:55 | NUR ---
Patient in Asystole with Family at Bedside after Terminal Extubation and Comfort Measures initiated. Myself & RN Diallo at bedside assessing patient with no heart tones auscultated, no breath sounds or lung excursion auscultated, and no pulses palpable to the radial, femoral, and carotid arteries. Time of to be noted at 1855. End of care.
--- NOTE | 2022-09-10 19:22 | NUR ---
[facility] PT NOT A CANDIDATE FOR DONATION. CASE #[id number]. SPOKE WITH
--- NOTE | 2022-09-10 19:30 | NUR ---
[facility] PT NOT A CORONERS CASE. SPOKE WITH SORAYA.
--- NOTE | 2022-09-10 20:20 | NUR ---
notified doctors Lizzy Pearson, Benjamin Roman, and Deondre that pt at 185
--- NOTE | 2022-09-10 21:51 | NUR ---
RUTH SPOKE WITH HEDY AT [facility] FOR PT METAL FITTERS AND MACHINISTS. PT PICKED UP BY RUTH AT [id number].
== END 2022-09-10 18:55 | DRG 870 ==
LOC: SED 14:45 → STU 18:17 → SIC 08-30 08:41
PROVIDERS: ADMIT Internal Medicine; ATTEND Internal Medicine
PROC: 5A1955Z Respiratory Ventilation, Greater than 96 Consecutive Hours (ICD-10-PCS; principal; 2022-08-30)
PROC: 02HV33Z Insertion of Infusion Device into Superior Vena Cava, Percutaneous Approach (ICD-10-PCS; 2022-08-30)
PROC: B548ZZA Ultrasonography of Superior Vena Cava, Guidance (ICD-10-PCS; 2022-08-30)
PROC: 0BJ08ZZ Inspection of Tracheobronchial Tree, Via Natural or Artificial Opening Endoscopic (ICD-10-PCS; 2022-08-30)
PROC: 5A09357 Assistance with Respiratory Ventilation, Less than 24 Consecutive Hours, Continuous Positive Airway Pressure (ICD-10-PCS; 2022-08-30)
PROC: 0BH17EZ Insertion of Endotracheal Airway into Trachea, Via Natural or Artificial Opening (ICD-10-PCS; 2022-08-30)
DX: A41.9 Sepsis, unspecified organism (principal); J18.9 Pneumonia, unspecified organism; E43 Unspecified severe protein-calorie malnutrition; N17.0 Acute kidney failure with tubular necrosis; R65.21 Severe sepsis with septic shock; J96.21 Acute and chronic respiratory failure with hypoxia; J96.22 Acute and chronic respiratory failure with hypercapnia; N18.6 End stage renal disease; Z68.1 Body mass index [BMI] 19.9 or less, adult; Z99.11 Dependence on respirator [ventilator] status; I50.20 Unspecified systolic (congestive) heart failure; I42.9 Cardiomyopathy, unspecified; I82.621 Acute embolism and thrombosis of deep veins of right upper extremity; I13.2 Hypertensive heart and chronic kidney disease with heart failure and with stage 5 chronic kidney disease, or end stage renal disease; Z20.822 Contact with and (suspected) exposure to COVID-19; E78.5 Hyperlipidemia, unspecified; E87.5 Hyperkalemia; E88.09 Other disorders of plasma-protein metabolism, not elsewhere classified; J43.9 Emphysema, unspecified; Z79.899 Other long term (current) drug therapy; Z79.82 Long term (current) use of aspirin; Z99.81 Dependence on supplemental oxygen; Z87.891 Personal history of nicotine dependence; Z66 Do not resuscitate
CPT/HCPCS: 36415; 36600; 71045; 80048; 80053; 80061; 81000; 82803; 82962; 83605; 83735; 83880; 84100; 84302; 84443; 85007; 85025; 85027; 87040; 87070-TC; 87081; 87086; 87205-TC; 93005; 93306; 93970; 94002; 94003; 94640; 94660; 94760; 96365; 96375; 97110-GP; 99291; G0378; J0456; J0610; J0692; J0696; J1030; J1650; J1815; J1940; J2020; J2060; J2270; J2543; J2704; J2930; J3010; J3370; J3475; J3480; J3490; J7050; J7060; J7614; J7626